=== PATIENT | male | born 1950 | race Caucasian/White ===

== ENCOUNTER 2017-08-26 13:47 | Observation (INO) | payer OTHER ==
[2017-08-26] MEDS ORDERED: NA CHLORIDE 0.9% 1,000 ML ONE (15:00)
--- NOTE | 2017-08-26 15:15 | EKG ---
Test Date: 2017-08-26 Test Time: 14:14:51 Sweat Band Sewer: MAGGIE MEASUREMENT RESULTS: Intervals: Rate: 74 MI: 166 QRSD: 102 QT: 416 QTc: 461 Wesson: P: 28 MI: 166 QRS: -13 T: 34 INTERPRETIVE STATEMENTS: Normal sinus rhythm Normal ECG Compared to ECG 07/26/2015 08:17:02 No significant changes Electronically Signed On 08-26-17 15:14:41 CDT by Jarred Turpin
[2017-08-26 15:17] LABS: Absolute Lymphocytes (CBC) 1.3 K/uL (0.7-4.9); Absolute Monocytes 0.5 K/uL (0.1-1.3); Absolute Neutrophil 3.7 K/uL (1.8-8.0); Basophils % 0.3 % (0-1.3); Eosinophils % 1.7 % (0-4.4); Hematocrit 31.8 % (39.6-49.0); Lymphocytes % 23.2 % (15.3-44.8); MCH 22.2 pg (27.0-35.0); MCV 70.7 fL (80-100); MPV 7.2 fL (7.6-11.3); Monocytes % 8.9 % (3.3-12.3); RBC Red Blood Cell Count 4.49 M/uL (4.33-5.43)
[2017-08-26 15:30] LABS: Protime INR 1.08
[2017-08-26 15:39] LABS: Albumin 3.5 g/dL (3.4-5.0); Bilirubin Direct 0.2 mg/dL (0-0.2); Bilirubin Total 0.6 mg/dL (0.2-1.0); CKMB Creatine Kinase MB 2.2 ng/mL (0.3-3.6); Magnesium 2.2 mg/dL (1.8-2.4); Potassium 3.5 mmol/L (3.5-5.1); Protein, Total 7.6 g/dL (6.4-8.2)
--- NOTE | 2017-08-26 16:04 | RAD REPORT ---
EXAM DESCRIPTION: RAD - Chest Single View - 08/26/2017 3:59 pm CLINICAL HISTORY: Cough, abdominal distention COMPARISON: July 2015 TECHNIQUE: AP portable chest image was obtained 1547 hours . FINDINGS: Lung markings are similar to comparison. No peripheral mass, infiltrate or failure finding . Trachea is midline. Heart and vasculature are normal. No measurable pleural effusion and no pneumot horax. No gross bony abnormality seen. No acute aortic findings suspected. IMPRESSION: No acute cardiopulmonary finding. No significant change from comparison.
--- NOTE | 2017-08-26 17:22 | RAD REPORT ---
EXAM DESCRIPTION: CT - Abdomen Pelvis W Contrast - 08/26/2017 4:52 pm CLINICAL HISTORY: Abdominal pain. COMPARISON: None. TECHNIQUE: Computed axial tomography of the abdomen and pelvis was obtained. 100 cc Isovue-300 is ad ministered intravenously. Oral contrast was given. All CT scans are performed using dose optimization technique as appropriate and may include automated exposure control or mA/KV adjustment according to patient size. FINDINGS: The opacification of the vessels and organs is limited due to technical problems. The liver, spleen, pancreas, and adrenals appear grossly normal. Small renal cysts are present. The appendix is normal caliber. A 4 centimeter soft tissue structure appears to be present within the hepatic flexure of the colon. A couple of adjacent lymph nodes measure up to 5 millimeters. Bilateral inguinal hernias contain fat. A duodenal diverticulum is seen IMPRESSION: 4 centimeter soft tissue structure within the hepatic flexure of the colon suspicious fo r neoplasm. . Probably less likely this represents incomplete distention. Colonoscopy is recommended.
--- NOTE | 2017-08-26 17:32 | EDPHYS ---
Physician Documentation [facility] Name: Ramu Weir Sr Age: 66 yrs Sex: Male : 1950 Arrival Date: 08/26/2017 Time: 13:51 Bed 7 Private MD: None, None ED Physician Delano Demarco HPI: 08/26 14:38 This 66 yrs old Male presents to ER via Wheelchair with complaints of Feet jeniffer Swelling, Leg Swelling, Cough, Dizziness, Chest Wall Pain. 14:38 The patient or guardian reports cough, difficulty breathing. Onset: The jeniffer symptoms/episode began/occurred 5 day(s) ago. Severity of symptoms: At their worst the symptoms were mild, in the emergency department the symptoms. Modifying factors: The symptoms are alleviated by nothing, the symptoms are aggravated by nothing. Associated signs and symptoms: The patient has no apparent associated signs or symptoms. Historical: - Allergies: 14:16 NKA; iw - Home Meds: 14:16 unknown BP medicine [Active]; iw - PMHx: 14:16 Hypertension; iw - PSHx: 14:16 None; iw - Immunization history:: Adult Immunizations not up to date. - Social history:: Smoking status: Patient/guardian denies using tobacco, the patient reports quitting approximately 3 years ago. - Ebola Screening: : Patient negative for fever greater than or equal to 101.5 degrees Fahrenheit, and additional compatible Ebola Virus Disease symptoms Patient denies exposure to infectious person Patient denies travel to an Ebola-affected area in the 21 days before illness onset No symptoms or risks identified at this time. ROS: 14:39 Constitutional: Negative for fever, chills, and weight loss, Eyes: Negative for injury, jeniffer pain, redness, and discharge, ENT: Negative for injury, pain, and discharge, Neck: Negative for injury, pain, and swelling, Back: Negative for injury and pain, : Negative for injury, bleeding, discharge, and swelling, Skin: Negative for injury, rash, and discoloration, Neuro: Negative for headache, weakness, numbness, tingling, and seizure, Psych: Negative for depression, anxiety, suicide ideation, homicidal ideation, and hallucinations, Allergy/Immunology: Negative for hives, rash, and allergies, Endocrine: Negative for neck swelling, polydipsia, polyuria, polyphagia, and marked weight changes, Hematologic/Lymphatic: Negative for swollen nodes, abnormal bleeding, and unusual bruising. 14:39 Cardiovascular: Positive for chest pain. 14:39 Respiratory: Positive for cough, shortness of breath. 14:39 Abdomen/GI: Positive for abdominal pain, abdominal distension. Exam: 14:39 Constitutional: This is a well developed, well nourished patient who is awake, alert, jeniffer and in no acute distress. Head/Face: Normocephalic, atraumatic. Eyes: Pupils equal round and reactive to light, extra-ocular motions intact. Lids and lashes normal. Conjunctiva and sclera are non-icteric and not injected. Cornea within normal limits. Periorbital areas with no swelling, redness, or edema. ENT: Nares patent. No nasal discharge, no septal abnormalities noted. Tympanic membranes are normal and external auditory canals are clear. Oropharynx with no redness, swelling, or masses, exudates, or evidence of obstruction, uvula midline. Mucous membranes moist. Neck: Trachea midline, no thyromegaly or masses palpated, and no cervical lymphadenopathy. Supple, full range of motion without nuchal rigidity, or vertebral point tenderness. No Meningismus. Chest/axilla: Normal chest wall appearance and motion. Nontender with no deformity. No lesions are appreciated. Cardiovascular: Regular rate and rhythm with a normal S1 and S2. No gallops, murmurs, or rubs. Normal PMI, no JVD. No pulse deficits. Back: No spinal tenderness. No costovertebral tenderness. Full range of motion. Skin: Warm, dry with normal turgor. Normal color with no rashes, no lesions, and no evidence of cellulitis. Neuro: Awake and alert, GCS 15, oriented to person, place, time, and situation. Cranial nerves II-XII grossly intact. Motor strength 5/5 in all extremities. Sensory grossly intact. Cerebellar exam normal. Normal gait. Psych: Awake, alert, with orientation to person, place and time. Behavior, mood, and affect are within normal limits. 14:39 Respiratory: the patient does not display signs of respiratory distress, Respirations: labored breathing, that is mild, Breath sounds: decreased breath sounds, Respiratory rate: 18 Vital Signs: 14:17 BP 130 / 85; Pulse 76; Resp 18 S; Temp 98.3; Pulse Ox 99% on R/A; Weight 99.79 kg; iw Height 5 ft. 10 in. (177.80 cm); Pain 0/10; 15:49 BP 121 / 77; Pulse 72; Resp 16; Pulse Ox 97% on R/A; aj 18:47 BP 139 / 98; Pulse 84; Resp 17; Pulse Ox 100% on R/A; aj 19:41 BP 144 / 90; Pulse 94; Resp 19; Pulse Ox 99% on R/A; aj 19:50 BP 142 / 96; Pulse 83; Resp 18; Pulse Ox 99% on R/A; mt 14:17 Body Mass Index 31.57 (99.79 kg, 177.80 cm) iw MDM: 14:09 Patient medically screened. [facility] 14:46 Data reviewed: vital signs, nurses notes, lab test result(s), EKG, radiologic studies, [facility] CT scan, plain films. 08/26 14:38 Order name: Basic Metabolic Panel; Complete Time: 16:03 [facility] 08/26 14:38 Order name: CBC with Diff; Complete Time: 15:36 [facility] 08/26 14:38 Order name: Ckmb; Complete Time: 16:03 [facility] 08/26 14:38 Order name: CPK; Complete Time: 16:03 [facility] 08/26 14:38 Order name: LFT's; Complete Time: 16:03 [facility] 08/26 14:38 Order name: Magnesium; Complete Time: 16:03 [facility] 08/26 14:38 Order name: NT PRO-BNP; Complete Time: 16:03 [facility] 08/26 14:38 Order name: PT-INR; Complete Time: 15:36 [facility] 08/26 14:38 Order name: Ptt, Activated; Complete Time: 15:36 [facility] 08/26 14:38 Order name: Troponin (emerg Dept Use Only); Complete Time: 16:03 [facility] 08/26 14:38 Order name: Lipase; Complete Time: 16:03 [facility] 08/26 16:03 Order name: AMMONIA [facility] 08/26 18:07 Order name: Urine Dipstick--Ancillary (enter results) eb 08/26 19:12 Order name: Urine Dipstick-Ancillary EDMS 08/26 14:38 Order name: XRAY Chest (1 view); Complete Time: 17:06 [facility] 08/26 14:38 Order name: EKG; Complete Time: 14:39 [facility] 08/26 14:38 Order name: Cardiac monitoring; Complete Time: 14:55 [facility] 08/26 14:38 Order name: EKG - Nurse/Tech; Complete Time: 16:44 [facility] 08/26 14:38 Order name: IV Saline Lock; Complete Time: 14:55 [facility] 08/26 14:38 Order name: Labs collected and sent; Complete Time: 14:56 [facility] 08/26 14:38 Order name: O2 Per Protocol; Complete Time: 14:56 [facility] 08/26 14:38 Order name: O2 Sat Monitoring; Complete Time: 14:56 [facility] 08/26 14:38 Order name: Urine Dipstick-Ancillary (obtain specimen); Complete Time: 18:02 [facility] 08/26 14:38 Order name: CT Abd/Pelvis - W/Contrast; Complete Time: 17:28 [facility] 08/26 17:40 Order name: CONS Physician Consult EDOR 08/26 17:40 Order name: Echo with Doppler EDOR Administered Medications: 14:58 Drug: NS 0.9% 1000 ml Route: IV; Rate: 75 ml/hr; Site: right forearm; aj 20:05 Follow up: Response: No adverse reaction; IV Status: Order to discontinue infusion; IV aj Intake: 250ml 17:53 Drug: Cipro 400 mg Volume: 200 ml; Route: IVPB; Infused Over: 60 mins; Site: right aj forearm; 20:08 Follow up: Response: No adverse reaction; IV Status: Completed infusion; IV Intake: aj 200ml 17:53 Drug: Flagyl 500 mg Volume: 100 ml; Route: IVPB; Rate: 200 ml/hr; Infused Over: 30 aj mins; Site: right forearm; 20:04 Follow up: Response: No adverse reaction; IV Status: Completed infusion; IV Intake: aj 100ml Disposition: 08/26/17 17:32 Hospitalization ordered by Chaitanya Harmon for Inpatient Admission. Preliminary diagnosis are Abdominal tenderness, Other specified noninfective gastroenteritis and colitis - hepatic flexure, Edema, unspecified. - Bed requested for Telemetry/MedSurg (Inpatient). - Status is Inpatient Admission. aj - Condition is Fair. - Problem is new. - Symptoms have improved. UTI on Admission? No Signatures: Dispatcher [employer] EDOR Chadwick, Marielle, RN RN kl Rodriguez, Cheri, RN Delano Causey MD MD cha Williams, Irene, RN RN iw Botello, Elizabeth eb Corrections: (The following items were deleted from the chart) 17:50 17:32 Hospitalization Ordered by Chaitanya Harmon MD for Inpatient Admission. Preliminary eb diagnosis is Abdominal tenderness; Other specified noninfective gastroenteritis and colitis - hepatic flexure; Edema, unspecified. Bed requested for Telemetry/MedSurg (Inpatient). Status is Inpatient Admission. Condition is Fair. Problem is new. Symptoms have improved. UTI on Admission? No. jeniffer 19:34 17:50 08/26/2017 17:32 Hospitalization Ordered by Chaitanya Harmon MD for Inpatient kl Admission. Preliminary diagnosis is Abdominal tenderness; Other specified noninfective gastroenteritis and colitis - hepatic flexure; Edema, unspecified. Bed requested for Telemetry/MedSurg (Inpatient). Status is Inpatient Admission. Condition is Fair. Problem is new. Symptoms have improved. UTI on Admission? No. eb 20:09 19:34 08/26/2017 17:32 Hospitalization Ordered by Chaitanya Harmon MD for Inpatient aj Admission. Preliminary diagnosis is Abdominal tenderness; Other specified noninfective gastroenteritis and colitis - hepatic flexure; Edema, unspecified. Bed requested for Telemetry/MedSurg (Inpatient). Status is Inpatient Admission. Condition is Fair. Problem is new. Symptoms have improved. UTI on Admission? No. kl
--- NOTE | 2017-08-26 17:32 | ER ---
Nurse's Notes [facility] Name: Ramu Weir Sr Age: 66 yrs Sex: Male : 1950 Arrival Date: 08/26/2017 Time: 13:51 Bed 7 Private MD: None, None Diagnosis: Abdominal tenderness;Other specified noninfective gastroenteritis and colitis-hepatic flexure;Edema, unspecified Presentation: 08/26 14:14 Presenting complaint: Patient states: has had swelling and tingling in both feet X 1 iw week, also has had dry cough and gets dizzy when he cough, SOB on exertion, denies chest pain. Transition of care: patient was not received from another setting of care. Onset of symptoms was August 19, 2017. Risk Assessment: Do you want to hurt yourself or someone else? Patient reports no desire to harm self or others. Initial Sepsis Screen: Does the patient meet any 2 criteria? No. Patient's initial sepsis screen is negative. Does the patient have a suspected source of infection? No. Patient's initial sepsis screen is negative. Care prior to arrival: None. 14:14 Method Of Arrival: Wheelchair iw 14:14 Acuity: LANIE 3 iw Historical: - Allergies: 14:16 NKA; iw - Home Meds: 14:16 unknown BP medicine [Active]; iw - PMHx: 14:16 Hypertension; iw - PSHx: 14:16 None; iw - Immunization history:: Adult Immunizations not up to date. - Social history:: Smoking status: Patient/guardian denies using tobacco, the patient reports quitting approximately 3 years ago. - Ebola Screening: : Patient negative for fever greater than or equal to 101.5 degrees Fahrenheit, and additional compatible Ebola Virus Disease symptoms Patient denies exposure to infectious person Patient denies travel to an Ebola-affected area in the 21 days before illness onset No symptoms or risks identified at this time. Screenin:02 Abuse screen: Denies threats or abuse. Denies injuries from another. Nutritional aj screening: No deficits noted. Tuberculosis screening: No symptoms or risk factors identified. Fall Risk None identified. Assessment: 15:00 General: Appears in no apparent distress. comfortable, Behavior is calm, cooperative, aj appropriate for age. Pain: Denies pain. Neuro: Level of Consciousness is awake, alert, obeys commands, Oriented to person, place, time, situation. Cardiovascular: Capillary refill < 3 seconds in bilateral fingers Patient's skin is warm and dry. Cardiovascular: Edema is 1+ to left ankle and right ankle is 2+ to left foot and right foot. Respiratory: Airway is patent Trachea midline Respiratory effort is even, unlabored, Respiratory pattern is regular, symmetrical. Respiratory: Reports cough that is. Derm: Skin is intact, is healthy with good turgor, Skin is pink, warm \T\ dry. normal. 15:00 GI: Abdomen is round distended, obese. aj 18:46 Reassessment: Patient appears in no apparent distress at this time. No changes from aj previously documented assessment. Patient and/or family updated on plan of care and expected duration. Pain level reassessed. Patient is alert, oriented x 3, equal unlabored respirations, skin warm/dry/pink. Patient denies pain at this time. 18:47 Reassessment: Patient appears in no apparent distress at this time. No changes from aj previously documented assessment. Patient and/or family updated on plan of care and expected duration. Pain level reassessed. Patient is alert, oriented x 3, equal unlabored respirations, skin warm/dry/pink. Patient denies pain at this time. Vital Signs: 14:17 BP 130 / 85; Pulse 76; Resp 18 S; Temp 98.3; Pulse Ox 99% on R/A; Weight 99.79 kg; iw Height 5 ft. 10 in. (177.80 cm); Pain 0/10; 15:49 BP 121 / 77; Pulse 72; Resp 16; Pulse Ox 97% on R/A; aj 18:47 BP 139 / 98; Pulse 84; Resp 17; Pulse Ox 100% on R/A; aj 19:41 BP 144 / 90; Pulse 94; Resp 19; Pulse Ox 99% on R/A; aj 19:50 BP 142 / 96; Pulse 83; Resp 18; Pulse Ox 99% on R/A; mt 14:17 Body Mass Index 31.57 (99.79 kg, 177.80 cm) ED Course: 13:51 Patient arrived in ED. mr 13:52 None, None is Private Physician. mr 14:09 Delano Demarco MD is Attending Physician. [facility] 14:09 Cheri Rodriguez, ANUSHA is Primary Nurse. aj 14:16 Triage completed. iw 14:17 Arm band placed on. iw 14:20 EKG done, by health tech. reviewed by Delano Demarco MD. sm3 14:56 Radiology exam delayed due to LAB DRAW. jr1 15:02 Patient has correct armband on for positive identification. Placed in gown. Bed in low aj position. Adult w/ patient. rivet machine operator on. Pulse ox on. NIBP on. 15:02 Inserted saline lock: 22 gauge in right forearm, using aseptic technique. Patient aj maintains SpO2 saturation greater than 95% on room air. 15:55 X-ray completed. Portable x-ray completed in exam room. Patient tolerated procedure mh1 well. 15:57 XRAY Chest (1 view) In Process Unspecified. EDMS 16:[address] via wheelchair. mw3 16:52 CT Abd/Pelvis - W/Contrast In Process Unspecified. EDMS 16:53 CT completed. Patient tolerated procedure well. Patient moved back from CT. mw3 17:31 Chaitanya Harmon MD is Hospitalizing Provider. [facility] 18:02 Urine collected: clean catch specimen, clear, juan colored. jb1 20:03 Report given to Ranjeet. aj 20:03 No provider procedures requiring assistance completed. Patient admitted, IV remains in aj place. Administered Medications: 14:58 Drug: NS 0.9% 1000 ml Route: IV; Rate: 75 ml/hr; Site: right forearm; aj 20:05 Follow up: Response: No adverse reaction; IV Status: Order to discontinue infusion; IV aj Intake: 250ml 17:53 Drug: Cipro 400 mg Volume: 200 ml; Route: IVPB; Infused Over: 60 mins; Site: right aj forearm; 20:08 Follow up: Response: No adverse reaction; IV Status: Completed infusion; IV Intake: aj 200ml 17:53 Drug: Flagyl 500 mg Volume: 100 ml; Route: IVPB; Rate: 200 ml/hr; Infused Over: 30 aj mins; Site: right forearm; 20:04 Follow up: Response: No adverse reaction; IV Status: Completed infusion; IV Intake: aj 100ml Intake: 20:04 IV: 100ml; Total: 100ml. aj 20:05 IV: 250ml; Total: 350ml. aj 20:08 IV: 200ml; Total: 550ml. aj Outcome: 17:32 Decision to Hospitalize by Provider. jeniffer 20:03 Admitted to Med/surg accompanied by tech, via wheelchair, room 232, with chart. haseeb 20:03 Condition: good 20:03 Instructed on the need for admit. 20:09 Patient left the ED. haseeb Signatures: Dispatcher [employer] EDRehan Aldrich jb1 Cheri Rodriguez, ANUSHA RN Delano Mac MD MD cha Rivera, Angela mr Anders, Corry 1 Rodrigo, Cindy 1 Heidi Mccracken, Jud Robin RN, mt, Shakira 3 Cora Song mw3 Corrections: (The following items were deleted from the chart) 16:53 16:52 Patient taken to an exam room, Patient moved to [place] mw3 mw3
[2017-08-26] MEDS ORDERED: METRONIDAZOLE 500mg IVPB 500 MG/100 ML BAG IV ONE (17:51)
[2017-08-26] MEDS ORDERED: CIPROFLOXACIN 400mg IV 400 MG/200 ML BAG IV ONE (17:51)
[2017-08-26] MEDS ORDERED: ONDANSETRON 4 MG/2 ML VIAL IV PRN (17:55)
[2017-08-26] MEDS ORDERED: LABETALOL 20 MG/4ML SYRINGE IV PRN (18:35)
[2017-08-26 19:11] LABS: Urine Blood NEGATIVE (NEG); Urine Glucose NEGATIVE (NEG); Urine Protein NEGATIVE (NEG); Urine Specific Gravity 1.015 (1.005-1.030)
[2017-08-26] MEDS ORDERED: LIDOCAINE 1% W/EPI 1:100,000 MDV 50 ML VIAL ONE (19:47)
[2017-08-26 21:01] VITALS: BMI 35.5
[2017-08-26] MEDS: THIAMINE HCL 100 MG TABLET PO SCH (21:12)
[2017-08-26] MEDS: FUROSEMIDE 40 MG/4 ML VIAL IV SCH (21:12)
[2017-08-26] MEDS: FOLIC ACID 1 MG TABLET PO SCH (21:12)
[2017-08-26] MEDS: LORazepam 2 MG/ML VIAL IV PRN (22:28)
--- NOTE | 2017-08-27 04:09 | HP ---
Date of Admission: 08/26/2017 Primary Care Physician: None. Chief Complaint: Abdominal swelling, edema. History Of Present Illness: The patient is a 66-year-old male with past medical history of hypertension, who has not seen a physician in a very long time, comes in with several months' swelling in his abdomen, his lower extremities, and some shortness of breath. The patient's symptoms are constant , moderate, progressively worsening. Past Medical History: Hypertension. Past Surgical History: Had trauma to his right leg and had a metal implant in his hip and leg. Allergies: NO KNOWN DRUG ALLERGIES. Medications: None. Social History: The patient denies smoking, drinks 6 packs every 3 to 4 days. No illicit drug use. Family History: The patient denies any history of premature coronary artery disease. Review of Systems: An 11-point system reviewed, negative except as per HPI. Physical Examination: Vital Signs: Blood pressure 130/85, pulse 76, respirations 18, temperature 98.3 , O2 99% on room air. General: Awake, alert, oriented, in some mild distress. Elderly male. CV: S1, S2. Regular rate and rhythm. Peripheral pulses present. HEENT: Normocephalic, atraumatic. PERRLA. EOMI. Moist mucous membranes. Poor dentition. Conjunctiva is anicteric. Neck: Supple. Trachea midline. JVD distention. Respiratory: Diminished breath sounds at the bases. No wheezing. No use of accessory muscles. Gastrointestinal: Abdomen is distended. Positive bowel sounds. No tenderness to palpation, moderate ascites. Extremities: No clubbing or cyanosis. 3+ edema to bilateral lower extremities. No calf tenderness. Neuro: Cranial nerves 2 through 12 intact grossly. No focal neurological deficit. Speech is normal. Strength is 5/5 in bilateral upper and lower extremities. Skin: The patient has chronic venous stasis changes in bilateral lower extremities. Psych: Mood is okay. Affect is full. Insight and judgment are poor. Laboratory Data: Sodium 136, potassium 3.5, chloride 103, CO2 26, BUN 7, creatinine 0.9, glucose 109, calcium 8.7, magnesium 2.2. Troponin less than 0.02. INR 1.08. WBC 5.6, H and H 10 and 31.8, platelets 253. Chest x-ray shows no acute cardiopulmonary process. Abdomen CT shows a 4 cm soft tissue structure within the hepatic flexure of the colon, suspicious for neoplasm, probably less likely this represents incomplete distention. Colonoscopy is recommended. Assessment: A 66-year-old male with; 1. Colon mass around the areaof hepatic flexure. 2. Anasarca with ascites. 3. Shortness of breath. 4. Coagulopathy. 5. Hyperglycemia. 6. Anemia, microcytic, hypochromic. 7. Alcohol dependence. Plan: Admit the patient to [facility] as inpatient. We will start on diuresis with Lasix and Aldactone. The patient probably has alcoholic liver disease. We will continue with Ativan p.r.n. for alcohol withdrawal. P.r.n. medications for blood pressure. Consult GI, Dr. Adams. CODE STATUS: FULL. No TAHIRA VELAZCO/SINCERE Voice ID: [id number] MTDD
[2017-08-27 05:09] LABS: Protime INR 1.18
[2017-08-27 05:11] LABS: Absolute Lymphocytes (CBC) 1.2 K/uL (0.7-4.9); Absolute Monocytes 0.5 K/uL (0.1-1.3); Absolute Neutrophil 3.3 K/uL (1.8-8.0); Basophils % 0.2 % (0-1.3); Eosinophils % 2.6 % (0-4.4); Hematocrit 28.4 % (39.6-49.0); MCH 22.9 pg (27.0-35.0); MCV 69.6 fL (80-100); MPV 7.1 fL (7.6-11.3); Monocytes % 9.8 % (3.3-12.3); RBC Red Blood Cell Count 4.08 M/uL (4.33-5.43)
[2017-08-27 05:23] LABS: Albumin 3.2 g/dL (3.4-5.0); Bilirubin Total 0.6 mg/dL (0.2-1.0); Potassium 3.2 mmol/L (3.5-5.1); Protein, Total 6.9 g/dL (6.4-8.2)
[2017-08-27 06:01] LABS: Blood Morphology Comment NOTED (NOT SEEN); Hypochromasia 1+; Platelet Estimate ADEQ; Urine White Blood Cell Casts OK
[2017-08-27] MEDS ORDERED: PNEUMOCOCCAL VACCINE 0.5 ML IMVAC ONE (08:00)
[2017-08-27] MEDS: FUROSEMIDE 40 MG/4 ML VIAL IV SCH ×2 (10:03→21:08)
[2017-08-27] MEDS: THIAMINE HCL 100 MG TABLET PO SCH (10:04)
[2017-08-27] MEDS: SPIRONOLACTONE 25 MG TABLET PO SCH (10:04)
[2017-08-27] MEDS: FOLIC ACID 1 MG TABLET PO SCH (10:04)
--- NOTE | 2017-08-27 13:56 | ECHO ---
HEIGHT: 5 ft 10 in WEIGHT: 247 lb 11.2 oz DATE OF STUDY: 08/27/[address]: Delano Demarco MD 2-DIMENSIONAL: YES M.MODE: YES DOPPLER: YES COLOR FLOW: YES TDS: PORTABLE: DEFINITY: BUBBLE STUDY: DIAGNOSIS: CONGESTIVE HEART FAILURE/ DYSPNEA CARDIAC HISTORY: CATHERIZATION: NO SURGERY: NO PROSTHETIC VALVE: NO PACEMAKER: NO MEASUREMENTS (cm) DIASTOLIC (NORMALS) SYSTOLIC (NORMALS) IVSd 1.1 (0.6-1.2) LA Diam 4.1 (1.9-4.0) LVEF 78% LVIDd 4.8 (3.5-5.7) LVIDs 2.6 (2.0-3.5) %FS 47% LVPWd 1.3 (0.6-1.2) Ao Diam 3.4 (2.0-3.7) 2 DIMENSIONAL ASSESSMENT: RIGHT ATRIUM: NORMAL LEFT ATRIUM: DILATED RIGHT VENTRICLE: NORMAL LEFT VENTRICLE: NORMAL TRICUSPID VALVE: NORMAL MITRAL VALVE: NORMAL PULMONIC VALVE: NORMAL AORTIC VALVE: NORMAL PERICARDIAL EFFUSION: NONE AORTIC ROOT: NORMAL LEFT VENTRICULAR WALL MOTION: NORMAL DOPPLER/COLOR FLOW: MILD TRICUSPID REGURGITATION. COMMENTS: MILD TRICUSPID REGURGITATION. NORMAL RIGHT VENTRICULAR SYSTOLIC PRESSURE. LEFT ATRIAL ENLARGEMENT. NORMAL LEFT VENTRICULAR SIZE AND FUNCTION. NO WALL MOTION ABNORMALITY. NO EFFUSION. TECHNOLOGIST: MAKAYLA MANJARREZ
--- NOTE | 2017-08-27 15:21 | PN ---
Date of Progress Note: 08/27/2017 Subjective: The patient is seen and examined, chart reviewed and case discussed with RN. The patient states that he had a good night overall, able to sleep. No acute events. Still having some discomfort due to abdominal distention. Review of Systems: Negative except as above. Medications: Reviewed. Physical Examination: Vital Signs: Temperature 97.9, heart rate 84, blood pressure 114/69, respirations 18, O2 97% on room air. General: Awake, alert, oriented x3, in some mild distress. Elderly male, somewhat ill-appearing, obese. CV: S1, S2. No murmurs. Peripheral pulses present. Respiratory: Diminished breath sounds at the bases. Some crackles heard. No wheezing. Gastrointestinal: Abdomen is distended, nontender. Positive bowel sounds. Ascites is present. Extremities: No clubbing, cyanosis. 3+ edema bilateral lower extremities. Neurologic: Nonfocal. Laboratory Data: Sodium 137, potassium 3.2, chloride 102, CO2 29, BUN 7, creatinine 1, glucose 101, calcium 8.3, albumin 3.2. WBC 5.2, H and H 9.3, 28.4 , platelets 273. Assessment And Plan: A 66-year-old male with: 1. Anasarca with ascites. Continue with spironolactone and Lasix. The patient does have liver dysfunction. We will obtain abdominal ultrasound. 2. Colon mass around the hepatic flexure. The patient will possibly need a colonoscopy. GI has been consulted. 3. Shortness of breath secondary to above, improving. The patient doing well on room air. 4. Coagulopathy secondary to liver disease. 5. Hyperglycemia, resolved. 6. Microcytic hypochromic anemia. Monitor H and H, transfuse as needed. 7. Alcohol dependence. We will continue Ativan p.r.n. for withdrawal. Thiamine, folate, multivitamin. The patient has been counseled. 8. Gastrointestinal and deep venous thrombosis prophylaxis with PPI and SCDs. No chemical anticoagulation due to possible procedure. 9. Obesity: BMI>30 ADDENDUM: Spoke w Dr. Rajan. Case discussed. Recommends out patient colonoscopy, cardiac clearance. Continue diuresis SA/MODL Voice ID: [id number] Report ID: [id number] [facility]
[2017-08-27] MEDS: LORazepam 2 MG/ML VIAL IV PRN (22:05)
[2017-08-28 05:22] LABS: Absolute Lymphocytes (CBC) 1.5 K/uL (0.7-4.9); Absolute Monocytes 0.6 K/uL (0.1-1.3); Absolute Neutrophil 3.7 K/uL (1.8-8.0); Basophils % 0.5 % (0-1.3); Eosinophils % 2.9 % (0-4.4); Hematocrit 29.7 % (39.6-49.0); Lymphocytes % 24.8 % (15.3-44.8); MCH 22.8 pg (27.0-35.0); MCV 71.4 fL (80-100); MPV 7.4 fL (7.6-11.3); Monocytes % 10.4 % (3.3-12.3); RBC Red Blood Cell Count 4.15 M/uL (4.33-5.43)
[2017-08-28 05:46] LABS: Albumin 3.3 g/dL (3.4-5.0); Bilirubin Total 0.5 mg/dL (0.2-1.0); Potassium 3.1 mmol/L (3.5-5.1); Protein, Total 7.1 g/dL (6.4-8.2)
--- NOTE | 2017-08-28 08:02 | RAD REPORT ---
EXAM DESCRIPTION: US - Abdomen Exam Complete - 08/28/2017 7:19 am CLINICAL HISTORY: Abnormal liver function, anasarca, colon mass COMPARISON: CT August 26 FINDINGS: Gallbladder size is normal. No gallstones, wall thickening or pericholecystic fluid. Commo n bile duct is normal with no common duct stone identified. Liver is 15 cm maximum dimension. No foca l liver lesion was identifiable. No abnormal nodularity of the capsule. Spleen is upper normal at 15 cm. No focal splenic abnormality. The pancreas is grossly normal but partially obscured. No suspicion for pancreatic process on the prior study. No hydronephrosis or suspicious mass in either kidney. Patient has bilateral thin-walled anechoic sim ple cysts. Aorta is normal is size. No ascites or bulky lymphadenopathy. No IVC abnormality. IMPRESSION: No hepatomegaly or focal liver parenchymal lesion. Spleen upper normal at 15 cm with no focal abnormality. Pancreas is partially obscured. No pancreatic abnormality seen on August 26 CT study.
[2017-08-28] MEDS: SPIRONOLACTONE 25 MG TABLET PO SCH (08:43)
[2017-08-28] MEDS: FOLIC ACID 1 MG TABLET PO SCH (08:43)
[2017-08-28] MEDS: FUROSEMIDE 40 MG/4 ML VIAL IV SCH (08:44)
[2017-08-28] MEDS: THIAMINE HCL 100 MG TABLET PO SCH (08:44)
[2017-08-28] MEDS ORDERED: LOSARTAN/HCTZ 50-12.5 PO SCH (09:00)
[2017-08-28 09:30] VITALS: O2SAT 94
[2017-08-28] MEDS ORDERED: POTASSIUM CL SA 10 MEQ TAB PO ONE (09:50)
--- NOTE | 2017-08-28 11:55 | CON ---
Date of Consultation: 08/27/2017 [address] admitted to Dr. Harmon's service on 08/26/2017. The patient was seen on 08/27/2017. Reason For Consultation: Congestive heart failure new onset and cardiac clearance for colonoscopy an d possible colon surgery. History Of Present Illness: Mr. Weir is 66-year-old white male, has really no significant past ca rdia history. He is supposed to take some medication for blood pressure. Came in with abdominal pa in, pedal edema, some shortness of breath. Chest x-ray shows some mild failure. Echocardiogram by t he time I saw him was normal with a normal ejection fraction. He has diuresed and improved and is as ymptomatic from a cardiac standpoint. Denies any chest pain, nausea, vomiting, diaphoresis, PND, ort hopnea, palpitation, or syncope. Apparently, he was found on CT of the abdomen to have a colonic fle xure mass with some possible adenopathy, a colonoscopy is planned. The patient is asymptomatic now. Past Medical History: Unremarkable. Review of Systems: Negative. Social History: Negative. Family History: Negative. Medications: At home are none. Physical Examination: Vital signs: Stable. He is afebrile. HEENT: Negative. Neck: Supple without any bruit, lymphadenopathy, JVD, or thyromegaly. Chest: Clear. Cardiac: Exam revealed a regular rhythm and rate with gallops. No murmurs or rubs. Abdomen: Distended, obese. Good bowel sounds. No hepatosplenomegaly. Extremities: Revealed trace edema. Diagnostic Data: Fairly unremarkable except what was mentioned earlier. EKG was nonspecific. Impression/plan: This is a patient with what sounds like a new . Echocardiogram was daphney l. He may have some diastolic dysfunction that is not noticeable now after his treatment. He needs to be on low dose Lasix and maybe a small dose of calcium channel kelsi for hypertension, he is to watch his salt intake. Eventually probably have a Lexiscan, but for now, I think he is cleared to [place] ve a colonoscopy done and his colon surgery if the need be. He does not have diabetes or dyslipidemi a. does not smoke and does not have a family history of heart disease. The case was disc ussed with Dr. Harmon. ROLANDO/SINCERE Voice ID: [id number] Report ID: [id number]
[2017-08-28 11:56] VITALS: BP 125/80; TEMP 97.3
--- NOTE | 2017-08-29 09:36 | DS ---
Date of Discharge: 08/28/2017 Materials Branch Chief: Dr. Rajan with GI. Cardiology: Dr. Sheehan Admitting Diagnoses: 1. Shortness of breath. 2. Anasarca with mild ascites. 3. Colon mass. 4. Coagulopathy. 5. Hyperglycemia. 6. Microcytic hypochromic anemia. 7. Alcohol dependence. Discharge Diagnoses: 1. Shortness of breath, resolved. 2. Anasarca, improved with diuresis. 3. Colon mass around the hepatic flexure. The patient will need outpatient colonoscopy, likely cancerous. 4. Shortness of breath secondary to above, resolved. 5. Coagulopathy, corrected. 6. Hyperglycemia, resolved. 7. Microcytic hypochromic anemia. H and H stable. 8. Alcohol dependence counseled. Continue with vitamin, folate, thiamine. 9. Obesity, BMI greater than 30. 10. Hypokalemia, replaced. Hospital Course: The patient is a 66-year-old male with several-month history of edema and swelling of his abdomen and lower extremities, shortness of breath , comes in for further evaluation. The patient was started on diuresis. CT scan was done, which showed mass in the colon around the hepatic flexure. GI was consulted. Dr. Rajan recommended outpatient colonoscopy. The patient had echocardiogram done, which showed normal ejection fraction. The patient was cleared for procedure by Dr. Sheehan. Abdominal ultrasound was done to evaluate his liver due to longstanding history of chronic alcoholism. Abdominal ultrasound did not show any hepatomegaly or focal liver parenchymal lesion. Spleen was upper and normal at 15 cm. The patient's edema improved. His shortness of breath resolved. He was saturating 94% on room air. The patient was then cleared for discharge from art consultant's standpoint to follow up with [facility]ORD[facility] Nails for outpatient colonoscopy to have colon mass diagnosed. The patient instructed that he will likely need further workup including possible oncology evaluation if mass was not to be malignant, which is highly likely. The patient also encouraged to follow up with primary care physician to establish care within 1 week. Return to ER for worsening condition. Diet: Low-sodium fluid-restricted diet. Activity: As tolerated. Medications: As per medication reconciliation list. Complete alcohol cessation recommended. Physical Examination: General: Awake, alert, oriented, no acute distress. CV: S1, S2. No murmurs. Regular rate and rhythm. Pulses present. Respiratory: Moving air well bilaterally. No wheezing. Gastrointestinal: Abdomen is soft, nontender, nondistended. Positive bowel sounds. Extremities: No clubbing, cyanosis. Trace pedal edema. Neurologic: Nonfocal. SA/MODL Voice ID: [id number] Report ID: [id number] [facility]
== END 2017-08-28 14:32 | disposition home or self-care (01) ==
LOC: ER 13:47 → ERHOLD 17:35 → INTOOBSV 17:35 → 2ND 19:58
PROVIDERS: ADMIT Family Medicine; ATTEND Family Medicine
DX: K63.89 Other specified diseases of intestine (principal); R60.1 Generalized edema; D68.9 Coagulation defect, unspecified; R73.9 Hyperglycemia, unspecified; D50.9 Iron deficiency anemia, unspecified; F10.20 Alcohol dependence, uncomplicated; E66.9 Obesity, unspecified; Z68.30 Body mass index [BMI] 30.0-30.9, adult; E87.6 Hypokalemia; I07.1 Rheumatic tricuspid insufficiency; R18.8 Other ascites; I10 Essential (primary) hypertension; Z28.21 Immunization not carried out because of patient refusal
CPT/HCPCS: 36415 ×2; 71045; 74177; 76700; 80048; 80053 ×2; 80076; 81003; 82140; 82550; 82553; 83690; 83735; 83880; 84132; 84484; 85025 ×3; 85610 ×2; 85730; 93005; 93306; 94760 ×4; 96361; 96365; 96366; 96368; 99285; G0378 ×2; J0744; J7030; Q9967

== ENCOUNTER 2018-03-15 13:37 | Inpatient (IN) | payer OTHER ==
--- NOTE | 2018-03-15 15:18 | RAD REPORT ---
EXAM DESCRIPTION: RAD - Chest Single View - 03/15/2018 2:52 pm CLINICAL HISTORY: Fall, chest injury, chest pain COMPARISON: February 26 TECHNIQUE: AP portable chest image was obtained 1449 hour . FINDINGS: Lung volumes are low. No peripheral mass, consolidation or edema. Heart and vasculature ar e normal. No pulmonary contusion, pneumothorax or pleural fluid collection. No acute bony abnormality seen. No acute aortic findings suspected. IMPRESSION: Limited shallow inspiration exam with no acute cardiopulmonary finding.
--- NOTE | 2018-03-15 15:18 | RAD REPORT ---
EXAM DESCRIPTION: CT - CTHCSPWOC - 03/15/2018 2:47 pm CLINICAL HISTORY: Fall, head and neck injury COMPARISON: None. TECHNIQUE: Axial 5 mm thick images of the head were obtained. Axial 2 mm thick images of the cervic al spine were obtained with sagittal and coronal reconstruction images generated and reviewed. All CT scans are performed using dose optimization technique as appropriate and may include automated exposure control or mA/KV adjustment according to patient size. FINDINGS: No intracranial hemorrhage, mass, edema or acute intracranial finding. No suspicion for ac [place] infarction. No cortical edema or sulcal effacement. Moderate severity atrophy and chronic ischemi c changes are present. Ventricles are in proportion to volume loss. Mastoid air cells are clear. Acut e and chronic sinusitis left maxillary sinus. No globe or orbit abnormality seen. Cervical body height and alignment are normal. All disc spaces are narrowed except for C2-3. Prominen t degenerative change present involves dens and the anterior arch C1. Mild bilateral foraminal encroa chment at C3-4 from uncovertebral joint hypertrophy. Posterior disc bulge and endplate spurring shepard es C4-5 cause borderline spinal stenosis and significant bilateral foraminal stenosis. Patient has la rge posterior endplate spurring at C5-6 and C6-7 with central spinal stenosis and prominent foraminal stenosis. No fracture or acute bony abnormality. Central canal detail is inherently limited. No paraspinal mass or hematoma. IMPRESSION: Atrophy and chronic ischemic change with no acute intracranial finding. Advanced cervical spine degenerative change with central spinal stenosis C5-7 with significant multil evel bony foraminal stenosis. No fracture or acute cervical spine finding.
[2018-03-15 15:54] LABS: ALT/SGPT 13 U/L (12-78); AST/SGOT 21 U/L (15-37); Albumin 3.7 g/dL (3.4-5.0); Alkaline Phosphatase 168 U/L (45-117); BUN Blood Urea Nitrogen 18 mg/dL (7-18); Bicarbonate 16 mmol/L (21-32); Bilirubin Direct 0.2 mg/dL (0-0.2); Bilirubin Total 0.5 mg/dL (0.2-1.0); Glucose Level 231 mg/dL (74-106); Magnesium 1.9 mg/dL (1.8-2.4); NT PRO-BNP 792 pg/mL (<125); Potassium 4.3 mmol/L (3.5-5.1); Sodium Level 129 mmol/L (136-145); Troponin (Emerg Dept Use Only) < 0.02 ng/mL (0.0-0.045)
[2018-03-15 16:20] LABS: Absolute Lymphocytes (CBC) 0.7 K/uL (0.7-4.9); Absolute Monocytes 0.5 K/uL (0.1-1.3); Basophils % 0.1 % (0-1.3); Hematocrit 36.4 % (39.6-49.0); Lymphocytes % 4.6 % (15.3-44.8); MPV 7.6 fL (7.6-11.3); Monocytes % 3.1 % (3.3-12.3); RBC Red Blood Cell Count 5.33 M/uL (4.33-5.43)
[2018-03-15] MEDS ORDERED: NA CHLORIDE 0.9% 500 ML ONE (16:27)
[2018-03-15 16:32] LABS: Protime INR 1.23
--- NOTE | 2018-03-15 17:16 | ER ---
Nurse's Notes [facility] Name: Ramu Weir Sr Age: 67 yrs Sex: Male : 1950 Arrival Date: 03/15/2018 Time: 13:39 Bed 7 Private MD: Diagnosis: Hypotension, unspecified;Acute kidney failure Presentation: 03/15 13:45 Presenting complaint: Child states: He was dx with colon CA last week with dr. raina alicea and he has an apt with a doctor at [facility] on but today he was in the bathroom and fell from standing on to his hands and knees, no LOC of trauma to head, neck, chest. He has been very week, anemic, dehydrated and told he has early pneumonia 2 weeks ago. He started abx yesterday. Transition of care: patient was not received from another setting of care. Onset of symptoms was March 15, 2018. Risk Assessment: Do you want to hurt yourself or someone else? Patient reports no desire to harm self or others. Initial Sepsis Screen: Does the patient meet any 2 criteria? Yes Does the patient have a suspected source of infection? No. Patient's initial sepsis screen is negative. Care prior to arrival: None. 13:45 Method Of Arrival: Wheelchair la1 13:45 Acuity: LANIE 2 la1 Historical: - Allergies: 13:48 NKA; la1 - PMHx: 13:48 Hypertension; colon CA; Cirrhosis; la1 - Immunization history:: Adult Immunizations up to date. - Social history:: Smoking status: Patient/guardian denies using tobacco. - Ebola Screening: : No symptoms or risks identified at this time. Screenin:00 Abuse screen: Denies threats or abuse. Denies injuries from another. Nutritional jl7 screening: No deficits noted. Tuberculosis screening: No symptoms or risk factors identified. Fall Risk Fall in past 12 months (25 points). No secondary diagnosis (0 pts). IV access (20 points). Ambulatory Aid- None/Bed Rest/Nurse Assist (0 pts). Gait- Weak (10 pts.). Mental Status- Oriented to own ability (0 pts). Total Henriquez Fall Scale indicates High Risk Score (45 or more points). Fall prevention measures have been instituted. Side Rails Up X 2 Placed Close to Nursing Station Frequent Obs/Assessments Occuring Family Present and informed to notify staff if the need to leave the bedside As available patient and family educated on Fall Prevention Program and Strategies. Assessment: 14:00 General: Appears in no apparent distress. uncomfortable, Behavior is calm, cooperative, jl7 appropriate for age. Pain: Denies pain. Neuro: Level of Consciousness is awake, alert, obeys commands, Oriented to person, place, time, situation. Cardiovascular: Patient's skin is warm and dry. Respiratory: Airway is patent Respiratory effort is even, unlabored, Respiratory pattern is regular, symmetrical. Derm: Skin is dry, Skin is pale, Skin temperature is warm. Musculoskeletal: No signs and/or symptoms reported regarding the musculoskeletal system. 15:00 Reassessment: Patient appears in no apparent distress at this time. No changes from jl7 previously documented assessment. Patient and/or family updated on plan of care and expected duration. Pain level reassessed. Patient is alert, oriented x 3, equal unlabored respirations, skin warm/dry/pink. 16:15 Reassessment: Pt c/o pain to hip and back due to laying in the bed, requesting jl7 something for pain, ERP notified, see MAR for orders. 17:15 Reassessment: Patient appears in no apparent distress at this time. Patient and/or jl7 family updated on plan of care and expected duration. Pain level reassessed. Patient is alert, oriented x 3, equal unlabored respirations, skin warm/dry/pink. Patient states feeling better. Patient states symptoms have improved. 18:15 Reassessment: Pt laying in bed with eyes closed, respirations even and unlabored, no jl7 signs of distress noted at this time. Vital Signs: 13:48 BP 86 / 61; Pulse 123; Resp 18; Temp 96.4; Pulse Ox 100% on R/A; Weight 99.79 kg; la1 Height 5 ft. 10 in. (177.80 cm); 14:31 BP 99 / 75; Pulse 119; Resp 24 S; Pulse Ox 98% on R/A; Pain 0/10; jl7 15:15 BP 98 / 65; Pulse 118; Resp 15 S; Pulse Ox 98% on R/A; jl7 16:33 BP 112 / 90; Pulse 120; Resp 16 S; Pulse Ox 99% on R/A; jl7 17:00 BP 125 / 84; Pulse 115; Resp 20 S; Pulse Ox 97% on R/A; jl7 17:30 BP 116 / 85; Pulse 116; Resp 19 S; Pulse Ox 97% on R/A; jl7 18:23 BP 119 / 87; Pulse 115; Resp 24; Temp 97.8(TE); Pulse Ox 97% ; jl7 13:48 Body Mass Index 31.57 (99.79 kg, 177.80 cm) la1 ED Course: 13:39 Patient arrived in ED. rg4 13:47 Triage completed. la1 13:48 Arm band placed on left wrist. la1 14:07 Delano Swain PA is PHCP. cp 14:08 Olvin Shepard MD is Attending Physician. cp 14:10 Haider Philippe RN is Primary Nurse. la1 14:32 Missed attempt(s): 22 gauge in right antecubital area. Bleeding controlled, band aid jl7 applied, catheter tip intact. 14:48 CT Head C Spine In Process Unspecified. EDMS 14:50 XRAY Chest (1 view) In Process Unspecified. EDMS 14:51 X-ray completed. Portable x-ray completed in exam room. Patient tolerated procedure la2 well. 15:00 Patient has correct armband on for positive identification. Placed in gown. Bed in low jl7 position. Call light in reach. Side rails up X2. teletypesetter monitor on. Pulse ox on. NIBP on. Warm blanket given. 15:00 Inserted saline lock: 18 gauge in right upper arm, using aseptic technique. ,using jl7 aseptic technique. inserted by Haider Philippe RN via US. 16:48 X-ray completed. Patient tolerated procedure well. Patient moved back from radiology. la2 16:49 XRAY Pelvis In Process Unspecified. EDMS 16:49 XRAY Femur RIGHT In Process Unspecified. EDMS 17:04 Primary Nurse role handed off by Haider Philippe RN jl7 17:04 Sarina Guardado RN is Primary Nurse. jl7 17:04 Sarina Guardado RN is Primary Nurse. jl7 17:14 Glo Webb MD is Hospitalizing Provider. cp 20:02 No provider procedures requiring assistance completed. IV to right upper arm d/c. New ak1 IV placement to Left upper arm by Haider Christensen RN via US. Administered Medications: 16:31 Drug: NS 0.9% 500 ml Route: IV; Rate: bolus; Site: right upper arm; jl7 18:18 Follow up: IV Status: Completed infusion jl7 16:31 Drug: fentaNYL (PF) 25 mcg Route: IVP; Site: right upper arm; jl7 17:00 Follow up: Response: No adverse reaction; Pain is decreased jl7 18:18 Not Given (ERP cancelled the order): NS 0.9% 500 ml IV at bolus once jl7 Outcome: 17:15 Decision to Hospitalize by Provider. cp 20:06 Admitted to Med/surg family with patient, via stretcher, room 224, on monitor, Report ak1 called to [facility] 20:06 Condition: stable 20:06 Instructed on the need for admit. 20:45 Patient left the ED. ak1 Signatures: Dispatcher [employer] EDMS Haider Philippe RN RN la1 Rosita Maier RN RN ak1 Delano Swain PA PA cp Garcia, Rubi 4 Sarina Guardado RN RN jl7 Danielle Vaughn la2
--- NOTE | 2018-03-15 17:16 | EDPHYS ---
Physician Documentation [facility] Name: Ramu Weir Sr Age: 67 yrs Sex: Male : 1950 Arrival Date: 03/15/2018 Time: 13:39 Bed 7 Private MD: ED Physician Olvin Shepard HPI: 03/15 14:30 This 67 yrs old Male presents to ER via Wheelchair with complaints of Fall cp Injury, Breathing Difficulty. 14:30 Details of fall: The patient fell from an upright position, while standing. Onset: The cp symptoms/episode began/occurred today. Associated injuries: The patient sustained injury to the head, contusion, right upper leg. 14:30 Patient reports he became dizzy and fell striking right side of head and right upper cp leg on ground. Historical: - Allergies: 13:48 NKA; la1 - PMHx: 13:48 Hypertension; colon CA; Cirrhosis; la1 - Immunization history:: Adult Immunizations up to date. - Social history:: Smoking status: Patient/guardian denies using tobacco. - Ebola Screening: : No symptoms or risks identified at this time. ROS: 14:35 Constitutional: Positive for poor PO intake, Negative for body aches, chills, fever. cp 14:35 Eyes: Negative for injury, pain, redness, and discharge. cp 14:35 ENT: Negative for drainage from ear(s), ear pain, sore throat, difficulty swallowing, difficulty handling secretions. 14:35 Neck: Negative for pain with movement, pain at rest, stiffness. 14:35 Cardiovascular: Negative for chest pain, edema, palpitations. 14:35 Respiratory: Positive for cough, Negative for shortness of breath, wheezing. 14:35 Abdomen/GI: Positive for abdominal distension, Negative for vomiting, diarrhea, constipation. 14:35 MS/extremity: Positive for pain, tenderness, of the right upper leg, Negative for decreased range of motion, deformity. 14:35 Neuro: Positive for weakness, Negative for altered mental status, headache, syncope, near syncope. 14:35 All other systems are negative. Exam: 14:40 Constitutional: The patient appears in no acute distress, alert, awake, cp non-diaphoretic, non-toxic, well developed, well nourished. 14:40 Head/Face: Normocephalic, atraumatic. Eyes: Pupils equal round and reactive to light, cp extra-ocular motions intact. Lids and lashes normal. Conjunctiva and sclera are non-icteric and not injected. Cornea within normal limits. Periorbital areas with no swelling, redness, or edema. ENT: Nares patent. No nasal discharge, no septal abnormalities noted. Tympanic membranes are normal and external auditory canals are clear. Oropharynx with no redness, swelling, or masses, exudates, or evidence of obstruction, uvula midline. Mucous membranes moist. Neck: Trachea midline, no thyromegaly or masses palpated, and no cervical lymphadenopathy. Supple, full range of motion without nuchal rigidity, or vertebral point tenderness. No Meningismus. Chest/axilla: Normal chest wall appearance and motion. Nontender with no deformity. No lesions are appreciated. 14:40 Cardiovascular: Rate: tachycardic, Rhythm: regular, Edema: is not appreciated, JVD: is not appreciated. 14:40 Respiratory: the patient does not display signs of respiratory distress, Respirations: normal, no use of accessory muscles, no retractions, no splinting, no tachypnea, labored breathing, is not present, Breath sounds: are clear throughout, no decreased breath sounds, no stridor, no wheezing. 14:40 Abdomen/GI: Inspection: distension, that is moderate, Bowel sounds: active, all quadrants, Palpation: abdomen is soft and non-tender, in all quadrants, involuntary guarding, is not appreciated. 14:40 Back: pain, is absent, ROM is normal. 14:40 Musculoskeletal/extremity: Extremities: grossly normal except: noted in the right upper leg: tenderness, There is no evidence of decreased ROM, deformity. 14:40 Skin: cellulitis, is not appreciated, no rash present. 14:40 Neuro: Orientation: to person, place \T\ time. Mentation: is normal, Cerebellar function: is grossly normal, Motor: moves all fours, strength is normal, Sensation: is normal. 15:00 ECG was reviewed by the Attending Physician. cp Vital Signs: 13:48 BP 86 / 61; Pulse 123; Resp 18; Temp 96.4; Pulse Ox 100% on R/A; Weight 99.79 kg; la1 Height 5 ft. 10 in. (177.80 cm); 14:31 BP 99 / 75; Pulse 119; Resp 24 S; Pulse Ox 98% on R/A; Pain 0/10; jl7 15:15 BP 98 / 65; Pulse 118; Resp 15 S; Pulse Ox 98% on R/A; jl7 16:33 BP 112 / 90; Pulse 120; Resp 16 S; Pulse Ox 99% on R/A; jl7 17:00 BP 125 / 84; Pulse 115; Resp 20 S; Pulse Ox 97% on R/A; jl7 17:30 BP 116 / 85; Pulse 116; Resp 19 S; Pulse Ox 97% on R/A; jl7 18:23 BP 119 / 87; Pulse 115; Resp 24; Temp 97.8(TE); Pulse Ox 97% ; jl7 13:48 Body Mass Index 31.57 (99.79 kg, 177.80 cm) la1 MDM: 14:08 Patient medically screened. cp 17:50 Data reviewed: vital signs, nurses notes, lab test result(s), radiologic studies, plain cp films. 03/15 14:24 Order name: Basic Metabolic Panel; Complete Time: 16:02 cp 02 16:02 Interpretation: Normal except: NA 129; CO2 16; GLUC 231; CRE 2.63; GFR 24. cp 03/15 14:24 Order name: CBC with Diff; Complete Time: 17:43 cp 03/15 17:43 Interpretation: Normal except: WBC 16.2; HGB 11.5; HCT 36.4; MCV 68.4; MCH 21.5; MCHC cp 31.4; DONTAE% 92.2; LYM% 4.6; MN% 3.1; NEUT A 15.0; PLT 660. 03/15 14:24 Order name: LFT's; Complete Time: 16:02 cp / 16:45 Interpretation: Normal except: ALK 168; TP 9.0; GLOB 5.3; A/G 0.7. cp 02/ 14:24 Order name: Magnesium; Complete Time: 16:02 cp 02/ 14:24 Order name: NT PRO-BNP; Complete Time: 16:02 cp 02/ 14:24 Order name: PT-INR; Complete Time: 16:44 cp 03/15 16:46 Interpretation: Abnormal: PT 14.6. cp 03/15 14:24 Order name: Troponin (emerg Dept Use Only); Complete Time: 16:02 cp 03/15 14:24 Order name: XRAY Chest (1 view); Complete Time: 15:33 cp 03/15 15:34 Interpretation: Report review. cp 03/15 14:24 Order name: CT Head C Spine; Complete Time: 15:33 cp 03/15 14:24 Order name: Type And Screen; Complete Time: 17:05 cp 03/15 16:12 Order name: XRAY Pelvis; Complete Time: 17:43 cp 03/15 16:12 Order name: XRAY Femur RIGHT; Complete Time: 17:43 cp 03/15 16:26 Order name: CBC Smear Scan; Complete Time: 17:43 EDMS 03/15 16:35 Order name: Urine Microscopic Only cp 03/15 14:24 Order name: EKG; Complete Time: 14:24 cp 03/15 14:24 Order name: Cardiac monitoring; Complete Time: 14:28 cp 03/15 14:24 Order name: EKG - Nurse/Tech; Complete Time: 14:59 cp 03/15 14:24 Order name: IV Saline Lock; Complete Time: 17:27 cp 03/15 14:24 Order name: Labs collected and sent; Complete Time: 17:27 cp 03/15 14:24 Order name: O2 Per Protocol; Complete Time: 14:28 cp 03/15 14:24 Order name: O2 Sat Monitoring; Complete Time: 14:28 cp EC:00 Rate is 117 beats/min. Rhythm is regular. NJ interval is normal. QRS interval is cp normal. QT interval is normal. Interpreted by me. Reviewed by me. Administered Medications: 16:31 Drug: NS 0.9% 500 ml Route: IV; Rate: bolus; Site: right upper arm; jl7 18:18 Follow up: IV Status: Completed infusion jl7 16:31 Drug: fentaNYL (PF) 25 mcg Route: IVP; Site: right upper arm; jl7 17:00 Follow up: Response: No adverse reaction; Pain is decreased jl7 18:18 Not Given (ERP cancelled the order): NS 0.9% 500 ml IV at bolus once jl7 Disposition: 03/15/18 17:15 Hospitalization ordered by Glo Webb for Inpatient Admission. Preliminary diagnosis are Hypotension, unspecified, Acute kidney failure. - Bed requested for Telemetry/MedSurg (observation). - Status is Inpatient Admission. ak1 - Condition is Stable. - Problem is new. - Symptoms have improved. UTI on Admission? No Addendum: 03/18/2018 20:32 Co-signature as Attending Physician, Olvin Shepard MD Available for consultation at p s1 all times . Signatures: Dispatcher [employer] EDMS Corry Wheeler RN RN mw Haider Philippe RN RN la1 Rosita Maier RN RN ak1 Delano Swain PA PA Sarina Almaraz RN RN jl7 Olvin Shepard MD MD ps1 Corrections: (The following items were deleted from the chart) 03/15 17:15 17:15 Hospitalization Ordered by Glo Webb MD for Observation. Preliminary diagnosis cp is Hypotension, unspecified; Acute kidney failure. Bed requested for Telemetry/MedSurg (observation). Status is Observation. Condition is Stable. Problem is new. Symptoms have improved. UTI on Admission? No. cp 17:43 16:35 Normal except: WBC 16.2; HGB 11.5; HCT 36.4; MCV 68.4; MCH 21.5; MCHC 31.4; DONTAE% cp 92.2; LYM% 4.6; MN% 3.1; NEUT A 15.0. cp 18:19 17:15 03/15/2018 17:15 Hospitalization Ordered by Glo Webb MD for Inpatient mw Admission. Preliminary diagnosis is Hypotension, unspecified; Acute kidney failure. Bed requested for Telemetry/MedSurg (observation). Status is Inpatient Admission. Condition is Stable. Problem is new. Symptoms have improved. UTI on Admission? No. cp 20:45 18:19 03/15/2018 17:15 Hospitalization Ordered by Glo Webb MD for Inpatient ak1 Admission. Preliminary diagnosis is Hypotension, unspecified; Acute kidney failure. Bed requested for Telemetry/MedSurg (observation). Status is Inpatient Admission. Condition is Stable. Problem is new. Symptoms have improved. UTI on Admission? No. mw
[2018-03-15 17:33] LABS: Urine White Blood Cell Casts OK
[2018-03-15 17:34] LABS: Anisocytosis 1+; Blood Morphology Comment NOTED (NOT SEEN); Platelet Estimate INCR; Platelets, Giant FEW; Polychromasia 1+
--- NOTE | 2018-03-15 17:39 | RAD REPORT ---
EXAM DESCRIPTION: RAD - Femur Right - 03/15/2018 4:51 pm CLINICAL HISTORY: Fall, pelvic, hip and femur pain, prior right femur fracture COMPARISON: Right femur July 2015 FINDINGS: Hardware is in place from prior femur fracture repair. No change in positioning of the rocky dware. No new fracture changes identified. No AVN of the femoral head. Hip joint degenerative changes are present. Mid and distal femur show no fracture or acute findings. No suspicious soft tissue find ing. No air or foreign body in the soft tissues. IMPRESSION: Negative right femur for acute finding. Nonacute findings detailed in the body of the re port.
--- NOTE | 2018-03-15 17:39 | RAD REPORT ---
EXAM DESCRIPTION: RAD - Pelvis - 03/15/2018 4:51 pm CLINICAL HISTORY: Fall, pelvic and hip pain, history of recent colon cancer diagnosis COMPARISON: Pelvis July 2015 TECHNIQUE: AP imaging of the pelvis was obtained. FINDINGS: Surgical hardware is in place from prior proximal right femur fracture repair. Hardware po sitioning has not changed. No acute proximal right femur fracture or dislocation. Proximal left femur is intact with no acute finding. Bilateral hip joint degenerative changes are present. Size of overl melba soft tissue limits upper and mid pelvic assessment. No gross fracture abnormality. Phleboliths i s seen along the pelvic floor. Patient has a very prominent bowel gas pattern not fully assessed. No pneumatosis or free air suspect ed. IMPRESSION: No pelvic fracture or acute finding identifiable. Prominent bowel gas pattern only partially imaged. No free air or pneumatosis seen.
--- NOTE | 2018-03-15 19:18 | P.HP ---
Certification for Inpatient Patient admitted to: Observation With expected LOS: <2 Midnights Practitioner: I am a practitioner with admitting privileges, knowledge of patient current condition, hospital course, and medical plan of care. Services: Services provided to patient in accordance with Admission requirements found in Title 42 Section 412.3 of the Code of Federal Regulations Patient History Date of Service: 03/16/18 History of Present Illness: This is a 67-year-old male with history of recent diagnosis of stage IV colon cancer, microcytic anemia admitted to the hospital for dizziness and generalized weakness. Per family, patient has been dizzy lightheaded for the past 2 days. They state that he has also been very weak unable to really move too much. On the day of admission, he states that he was in the bathroom and he fell from a standing position on his hands and knees. Denies any loss of consciousness, any trauma to the head or any other part of the body. Per family , he has been very weak and has not been really eating or drinking too well. He has a history of anemia. He was also told that he has early pneumonia 2 weeks ago. His colon cancer was diagnosed recently, which Dr. reed. Patient does have an appointment with Dr. Stoddard on . In the ER, he was hypotensive, which responded well to fluids. Labs, he was found to have a creatinine of 2.63 without any prior history of kidney disease, he was also hypernatremic. His chest x-ray though was normal and hemoglobin was stable. At the time of my exam, patient was alert oriented x3, in no acute distress, and his blood pressure had stabilized. Allergies No Known Allergies Allergy (Verified 08/26/17 22:33) Home Medications: Losartan/Hydrochlorothiazide [Losartan-Hctz 50-12.5 mg Tab] 1 each PO DAILY Meloxicam 7.5 mg PO BID PRN 08/26/17 Milk Thistle Seed Extract [Milk Thistle] 250 mg PO DAILY 08/26/17 Folic Acid 1 mg PO DAILY #30 tablet 08/28/17 Potassium Chloride 20 meq PO DAILY #3 tablet.er 08/28/17 Thiamine HCl [Vitamin B-1*] 100 mg PO DAILY #30 tablet 08/28/17 - Past Medical/Surgical History Diabetic: No -: hypertension Psychosocial/ Personal History: Single, 1 child, he does not work. - Family History Brother -: Heart disease - Social History Alcohol use: Yes CD- Drugs: No Caffeine use: No Review of Systems 10-point ROS is otherwise unremarkable Physical Examination - Physical Exam General: Alert, In no apparent distress, Oriented x3 HEENT: Atraumatic, PERRLA, Mucous membr. moist/pink, EOMI, Sclerae nonicteric Neck: Supple, 2+ carotid pulse no bruit, No LAD, Without JVD or thyroid abnormality Respiratory: Clear to auscultation bilaterally, Normal air movement Cardiovascular: Regular rate/rhythm, Normal S1 S2 Gastrointestinal: Normal bowel sounds, No tenderness, Distended Musculoskeletal: No tenderness Integumentary: No rashes Neurological: Normal speech, Normal strength at 5/5 x4 extr, Normal tone, Normal affect - Studies Laboratory Data (last 24 hrs) 03/15/18 15:50: PT 14.6 H, INR 1.23 03/15/18 15:20: WBC 16.2 H, Hgb 11.5 L, Hct 36.4 L, Plt Count 660 H 03/15/18 15:20: Sodium 129 L, Potassium 4.3, BUN 18, Creatinine 2.63 H, Glucose 231 H, Magnesium 1.9, Total Bilirubin 0.5, AST 21, ALT 13, Alkaline Phosphatase 168 H Assessment and Plan - Problems (Diagnosis) (1) Acute renal failure (ARF) Current Visit: Yes Status: Acute (2) Dehydration Current Visit: Yes Status: Acute (3) Anemia Current Visit: Yes Status: Chronic Qualifiers: Anemia type: iron deficiency (4) Cirrhosis, alcoholic Current Visit: No Status: Acute Qualifiers: Ascites presence: unspecified Qualified Code(s): K70.30 - Alcoholic cirrhosis of liver without ascites - Plan This is a 67-year-old male with: Acute renal failure Dehydration Hyponatremia Microcytic anemia Obesity Alcohol dependence/history Admit patient to floor Continue IV fluids Chest x-ray normal, WBC elevated. Patient is status post antibiotics in the ER. Will hold off on antibiotics right now, repeat chest x-ray. Monitor via a.m. labs Monitor blood pressure - Advance Directives Does patient have a Living Will: No Does patient have a Durable POA for Healthcare: No
[2018-03-15] MEDS ORDERED: NA CHLORIDE 0.9% 1,000 ML ONE (19:32)
[2018-03-15 21:18] VITALS: BMI 30.7
[2018-03-15] MEDS: MELATONIN 5 MG TABLET PO PRN (21:23)
[2018-03-15] MEDS: NA CHLORIDE 0.9% 1,000 ML IV SCH (21:24)
[2018-03-15] MEDS: ONDANSETRON 4 MG/2 ML VIAL IV PRN (21:24)
[2018-03-16 04:58] LABS: Absolute Lymphocytes (CBC) 0.7 K/uL (0.7-4.9); Absolute Monocytes 0.7 K/uL (0.1-1.3); Absolute Neutrophil 13.1 K/uL (1.8-8.0); Basophils % 0.1 % (0-1.3); Hematocrit 31.8 % (39.6-49.0); Lymphocytes % 4.7 % (15.3-44.8); MPV 7.2 fL (7.6-11.3); Monocytes % 5.1 % (3.3-12.3)
[2018-03-16 05:21] LABS: Albumin 3.4 g/dL (3.4-5.0); Bilirubin Total 0.4 mg/dL (0.2-1.0); Phosphorus 3.3 mg/dL (2.5-4.9); Potassium 3.1 mmol/L (3.5-5.1); Protein, Total 8.4 g/dL (6.4-8.2)
[2018-03-16] MEDS: NA CHLORIDE 0.9% 1,000 ML IV SCH ×2 (05:39→16:13)
--- NOTE | 2018-03-16 06:19 | EKG ---
Test Date: 2018-03-15 Test Time: 14:51:15 Wellness Coordinator: MEASUREMENT RESULTS: Intervals: Rate: 117 UT: 154 QRSD: 94 QT: 316 QTc: 440 [place]: P: 15 UT: 154 QRS: -14 T: 80 INTERPRETIVE STATEMENTS: Sinus tachycardia with premature atrial complexes Otherwise normal ECG Compared to ECG 08/26/2017 14:14:51 Atrial premature complex(es) now present Sinus rhythm no longer present Electronically Signed On 03-16-18 06:15:28 CLINICAL SUPPORT NURSE by Jarred Turpin
[2018-03-16] MEDS: ONDANSETRON 4 MG/2 ML VIAL IV PRN ×4 (06:33→23:29)
[2018-03-16] MEDS ORDERED: POTASSIUM CL SA 10 MEQ TAB PO ONE (07:00)
[2018-03-16] MEDS ORDERED: ENOXAPARIN 40 MG/0.4 ML SQ SCH (09:00)
--- NOTE | 2018-03-16 10:41 | P.PN ---
Subjective Date of Service: 03/16/18 Patient seen and examined at bedside. No family at bedside. Chart reviewed and case discussed with nursing staff. States that dizziness is slightly better. States he has not urinated since last night, does not sure. Review of Systems 10-point ROS is otherwise unremarkable Physical Examination - Vital Signs Temperature: 97.3 F Blood Pressure: 118/77 Pulse: 130 Respirations: 18 Pulse Ox (%): 95 - Physical Exam General: Alert, Oriented x3, Mild distress HEENT: Atraumatic, PERRLA, EOMI Neck: Supple, JVD not distended Respiratory: Clear to auscultation bilaterally, Normal air movement Cardiovascular: Regular rate/rhythm, Normal S1 S2 Gastrointestinal: Normal bowel sounds, Distended Musculoskeletal: No tenderness Integumentary: No rashes Neurological: Normal speech, Normal tone, Normal affect Lymphatics: No axilla or inguinal lymphadenopathy - Studies Laboratory Data (last 24 hrs) 03/15/18 15:50: PT 14.6 H, INR 1.23 03/15/18 15:20: WBC 16.2 H, Hgb 11.5 L, Hct 36.4 L, Plt Count 660 H 03/15/18 15:20: Sodium 129 L, Potassium 4.3, BUN 18, Creatinine 2.63 H, Glucose 231 H, Magnesium 1.9, Total Bilirubin 0.5, AST 21, ALT 13, Alkaline Phosphatase 168 H Assessment And Plan - Current Problems (Diagnosis) (1) Acute renal failure (ARF) Current Visit: Yes Status: Acute (2) Dehydration Current Visit: Yes Status: Acute (3) Anemia Current Visit: Yes Status: Chronic Qualifiers: Anemia type: iron deficiency (4) Cirrhosis, alcoholic Current Visit: No Status: Acute Qualifiers: Ascites presence: unspecified Qualified Code(s): K70.30 - Alcoholic cirrhosis of liver without ascites - Plan This is a 67-year-old male with: Acute renal failure Decreased urine output Dehydration Hyponatremia improving Continue IV fluids Check bladder scan for urinary retention. May need to straight cath Leukocytosis Patient with a recent pneumonia, also with distended abdomen Repeat chest x-ray pending to evaluate for possible pneumonia Abdominal ultrasound to evaluate for any ascites/abdominal source of infection Monitor via a.m. labs Monitor blood pressure Microcytic anemia H&H remained stable. No evidence of bleeding. Will continue to monitor Obesity Alcohol dependence/history History of cirrhosis
[2018-03-16 13:44] LABS: Calcium Oxalate Crystals- Ur FEW (NONE SEEN); Urine Amorphous Sediment 1+ /HPF (NONE SEEN); Urine Bacteria <20 /HPF (NONE SEEN); Urine Culture Reflex Order NOT NEEDED; Urine RBC <5 /HPF (NONE SEEN)
--- NOTE | 2018-03-16 14:27 | RAD REPORT ---
EXAM DESCRIPTION: RAD - Chest Single View - 03/16/2018 2:10 pm CLINICAL HISTORY: Evaluate pneumonia Chest pain. COMPARISON: Chest Single View dated 03/15/2018; Chest Pa And Lat (2 Views) dated 02/26/2018; Chest Sing le View dated 08/26/2017; Chest Single View dated 07/28/2015 FINDINGS: Portable technique limits examination quality. Linear atelectasis is present in both lung bases, slightly greater on the right. The lungs are underi nflated. The heart is normal in size. No displaced fractures. IMPRESSION: Underinflated lungs with atelectasis in both lung bases, greater on the right.
[2018-03-16] MEDS ORDERED: KCL 20 MEQ/100 mL IVPB 20 MEQ/100 ML BAG IV SCH (20:00)
[2018-03-16] MEDS: MELATONIN 5 MG TABLET PO PRN (20:30)
--- NOTE | 2018-03-16 21:12 | RAD REPORT ---
EXAM DESCRIPTION: US - Abdomen Exam Complete - 03/16/2018 8:51 pm CLINICAL HISTORY: Abdominal pain. History of cirrhosis, with abdominal distention COMPARISON: Abdomen Exam Complete dated 02/27/2018; Abdomen Exam Complete dated 08/28/2017; Abdomen Pelvis W Contrast dated 08/26/2017 FINDINGS: Diffusely heterogenous and nodular contour of the liver compatible with cirrhosis is seen. Vague hypoechoic rounded lesion is seen in the right lobe measuring 2.2 x 2.1 cm The gallbladder demonstrates no gallstones, pericholecystic fluid or gallbladder wall thickening. Co mmon bile duct is normal in caliber measuring 4 mm. Both kidneys are normal in size, shape and echotexture. No hydronephrosis. Small bilateral renal cyst s are present. The spleen is moderately enlarged measuring 15 cm. The pancreas and aorta are obscured by bowel gas. The visualized aspects of the IVC are grossly normal. Mild ascites. IMPRESSION: Liver cirrhosis is seen with vague 2.2 x 2.1 cm lesion in the right lobe of the liver se en. This lesion was seen previously on the 02/27/2018 study and may represent a mass or an area of fa tty sparing. Followup MR liver protocol with contrast would be helpful. Mild ascites. Moderate splenomegaly.
[2018-03-17] MEDS: ONDANSETRON 4 MG/2 ML VIAL IV PRN ×3 (04:19→13:24)
[2018-03-17] MEDS: NA CHLORIDE 0.9% 1,000 ML IV SCH ×3 (04:21→13:24)
[2018-03-17 04:53] LABS: Absolute Monocytes 0.7 K/uL (0.1-1.3); Absolute Neutrophil 8.3 K/uL (1.8-8.0); Basophils % 0.3 % (0-1.3); Eosinophils % 0.1 % (0-4.4); Hematocrit 32.2 % (39.6-49.0); Lymphocytes % 10.2 % (15.3-44.8); Monocytes % 7.1 % (3.3-12.3); RBC Red Blood Cell Count 4.74 M/uL (4.33-5.43)
[2018-03-17 05:10] LABS: Albumin 3.5 g/dL (3.4-5.0); Bilirubin Total 0.4 mg/dL (0.2-1.0); Potassium 4.2 mmol/L (3.5-5.1); Protein, Total 8.4 g/dL (6.4-8.2)
[2018-03-17] MEDS: ENOXAPARIN 30 MG/0.3 ML SQ SCH (08:55)
[2018-03-17] MEDS ORDERED: HYDROCODONE/APAP 7.5/325 MG TAB PO PRN (15:53)
--- NOTE | 2018-03-17 15:53 | P.PN ---
Subjective Date of Service: 03/17/18 Primary Care Provider: JORDON-Dr. Bone Subjective: Other (Patient still with nausea this afternoon.) Physical Examination - Vital Signs Temperature: 97.7 F Blood Pressure: 111/79 Pulse: 114 Respirations: 18 Pulse Ox (%): 95 - Physical Exam General: Alert, In no apparent distress, Oriented x3, Cooperative HEENT: Atraumatic Neck: Supple Respiratory: Clear to auscultation bilaterally, Normal air movement Cardiovascular: Abnormal pulses (Sinus tachycardia) Gastrointestinal: Hypoactive, Other (Distention noted to the abdomen.), Distended Neurological: Normal speech, Normal strength at 5/5 x4 extr, Normal tone - Studies Medications List Reviewed: Yes Assessment & Plan Discharge Plan: Other (Transfer verses other) Plan to discharge in: Greater than 2 days Physician Review Additional Text: Impression: Nausea, vomiting and Abdominal distension complicated with stage IV colon cancer to hepatic flexure with metastasis to the liver Acute on chronic renal failure Alcoholic liver cirrhosis Alcohol abuse Tobacco abuse Severe malnutrition Anemia likely secondary to chronic disease-colon cancer Plan: Nausea, vomiting and Abdominal distension complicated with stage IV colon cancer to hepatic flexure with metastasis to the liver: Will keep the patient NPO. Discuss case with GI. Will discuss case with Oncology about plan of care. Case discussed with surgery who will assess patient. Patient may require transfer to higher level of care if surgery is an option. If surgery is not option will need to consider hospice. Await recommendations from oncology and surgery. Will place NG tube. Acute on chronic renal failure: Continue IV fluids. Consult nephrology for further recommendation. Alcoholic liver cirrhosis: Will monitor closely Alcohol abuse: Cessation addressed in detail. Tobacco abuse: Will provide nicotine patch. Severe malnutrition: Secondary to above. Patient will remain NPO due to above. Anemia likely secondary to chronic disease-colon cancer: Will monitor closely. Time Spent Managing Pts Care (In Minutes): 55
[2018-03-17] MEDS: TRAMADOL HCL 50 MG TAB PO PRN (16:32)
--- NOTE | 2018-03-17 16:55 | P.CNS ---
Date of Consult: 03/17/18 Reason for Consult: JUAN M Requesting Physician: Varghese Montes Primary Care Provider: JORDON-Dr. Bone Chief Complaint: Weakness and Dizziness complicated by a fall History of Present Illness: 67 yo WM Alcoholic cirrhosis presented to the ER after a fall at home complicated by weakness and dizziness. The patient is unable to give an adequate HPI/ ROS. The son reports that the patient was home alone when he fell due to weakness and dizziness on his way to the bathroom. He was able to get himself up and callled his son. He told his son that he needed to go to the doctor. He reports a history of excessive NSAIDs but states that he takes much less now for his right should pain. Review of his medication list demonstrates twice daily Meloxican. He is unable able give a clear history regarding his bladder but does report that he does not always empty it completely. This is a 67-year-old male with history of recent diagnosis of stage IV colon cancer, microcytic anemia admitted to the hospital for dizziness and generalized weakness. Per family, patient has been dizzy lightheaded for the past 2 days. They state that he has also been very weak unable to really move too much. On the day of admission, he states that he was in the bathroom and he fell from a standing position on his hands and knees. Denies any loss of consciousness, any trauma to the head or any other part of the body. Per family , he has been very weak and has not been really eating or drinking too well. He has a history of anemia. He was also told that he has early pneumonia 2 weeks ago. His colon cancer was diagnosed recently, which Dr. reed. Patient does have an appointment with Dr. Stoddard on . In the ER, he was hypotensive, which responded well to fluids. Labs, he was found to have a creatinine of 2.63 without any prior history of kidney disease, he was also hypernatremic. His chest x-ray though was normal and hemoglobin was stable. At the time of my exam, patient was alert oriented x3, in no acute distress, and his blood pressure had stabilized. 14:30 This 67 yrs old Male presents to ER via Wheelchair with complaints of Fall cp Injury, Breathing Difficulty. 14:30 Details of fall: The patient fell from an upright position, while standing. Onset: The cp symptoms/episode began/occurred today. Associated injuries: The patient sustained injury to the head, contusion, right upper leg. 14:30 Patient reports he became dizzy and fell striking right side of head and right upper cp leg on ground. Allergies No Known Allergies Allergy (Verified 08/26/17 22:33) Home medications list reviewed: Yes - Past Medical/Surgical History Diabetic: Yes -: hypertension -: colon ca -: cirrhosis -: anemic -: pneumonia Psychosocial/ Personal History: Single, 1 child, he does not work. - Family History Brother Medical History: Heart disease - Social History Alcohol use: Yes CD- Drugs: No Caffeine use: No Place of Residence: Home Review of Systems 10-point ROS is otherwise unremarkable General: Weakness Respiratory: SOB with Excertion Gastrointestinal: Distention Musculoskeletal: Shoulder Pain Neurological: Weakness Physical Examination Temp Pulse Resp BP Pulse Ox 97.7 F 114 H 18 111/79 95 03/17/18 16:19 03/17/18 16:19 03/17/18 16:19 03/17/18 16:19 03/17/18 16:19 General: In no apparent distress, Cooperative HEENT: Atraumatic Neck: Supple Respiratory: Clear to auscultation bilaterally, Diminished Cardiovascular: No edema, Regular rate/rhythm, No rubs Gastrointestinal: Rigidity, Distended, Tenderness Musculoskeletal: No clubbing, No contractures, No warmth Integumentary: No rashes, No cyanosis Neurological: Normal speech Blood work reviewed in the chart. Cr 2.36; Na 133 Imagings Data: EXAM DESCRIPTION: US - Abdomen Exam Complete - 03/16/2018 8:51 pm CLINICAL HISTORY: Abdominal pain. History of cirrhosis, with abdominal distention COMPARISON: Abdomen Exam Complete dated 02/27/2018; Abdomen Exam Complete dated 08/28/2017; Abdomen Pelvis W Contrast dated 08/26/2017 FINDINGS: Diffusely heterogenous and nodular contour of the liver compatible with cirrhosis is seen. Vague hypoechoic rounded lesion is seen in the right lobe measuring 2.2 x 2.1 cm The gallbladder demonstrates no gallstones, pericholecystic fluid or gallbladder wall thickening. Common bile duct is normal in caliber measuring 4 mm. Both kidneys are normal in size, shape and echotexture. No hydronephrosis. Small bilateral renal cysts are present. The spleen is moderately enlarged measuring 15 cm. The pancreas and aorta are obscured by bowel gas. The visualized aspects of the IVC are grossly normal. Mild ascites. IMPRESSION: Liver cirrhosis is seen with vague 2.2 x 2.1 cm lesion in the right lobe of the liver seen. This lesion was seen previously on the 02/27/2018 study and may represent a mass or an area of fatty sparing. Followup MR liver protocol with contrast would be helpful. Mild ascites. Moderate splenomegaly. EXAM DESCRIPTION: RAD - Chest Single View - 03/16/2018 2:10 pm CLINICAL HISTORY: Evaluate pneumonia Chest pain. COMPARISON: Chest Single View dated 03/15/2018; Chest Pa And Lat (2 Views) dated 02/26/2018; Chest Single View dated 08/26/2017; Chest Single View dated 07/28/2015 FINDINGS: Portable technique limits examination quality. Linear atelectasis is present in both lung bases, slightly greater on the right. The lungs are underinflated. The heart is normal in size. No displaced fractures. IMPRESSION: Underinflated lungs with atelectasis in both lung bases, greater on the right. Echocardiogram [id number]: MILD TRICUSPID REGURGITATION. NORMAL RIGHT VENTRICULAR SYSTOLIC PRESSURE. LEFT ATRIAL ENLARGEMENT. NORMAL LEFT VENTRICULAR SIZE AND FUNCTION. NO WALL MOTION ABNORMALITY. NO EFFUSION. Conclusions/Impression: A JUAN M likely due to hypovolemia and chronic NSAIDs. Hyponatremia. Hypokalemia. Acidosis. Hyperglycemia suspicious for DM. Diastolic CHF, chronic. Alcoholic liver cirrhosis with ascites. Reduced but continuous alcohol intake. Microcytic anemia in chronic illness. Colon cancer. P/ Continue current POC and Medications. Agree with IVF. Replete lytes as ordered. Will give bicarb as needed. Check iron levels. Transfuse as needed. Consider a paracentesis. Consider a MVI. No NSAIDs. AM labs. Daily weight. Thank you kindly for the consultation.
--- NOTE | 2018-03-17 17:14 | ECHO ---
HEIGHT: 5 ft 10 in WEIGHT: 214 lb 6.4 oz DATE OF STUDY: 03/17/[address]: Varghese Montes DO 2-DIMENSIONAL: YES M.MODE: YES DOPPLER: YES COLOR FLOW: YES TDS: YES PORTABLE: DEFINITY: BUBBLE STUDY: DIAGNOSIS: EVALUATE HEART FOR CAD. CARDIAC HISTORY: CATHERIZATION: NO SURGERY: NO PROSTHETIC VALVE: NO PACEMAKER: NO MEASUREMENTS (cm) DIASTOLIC (NORMALS) SYSTOLIC (NORMALS) IVSd 1.1 (0.6-1.2) LA Diam 4.1 (1.9-4.0) LVEF 74% LVIDd 4.8 (3.5-5.7) LVIDs 2.7 (2.0-3.5) %FS 43% LVPWd 1.1 (0.6-1.2) Ao Diam 2.7 (2.0-3.7) 2 DIMENSIONAL ASSESSMENT: RIGHT ATRIUM: NORMAL LEFT ATRIUM: DILATED RIGHT VENTRICLE: NORMAL LEFT VENTRICLE: NORMAL TRICUSPID VALVE: NORMAL MITRAL VALVE: MITRAL ANNULAR CALCIFICATION PULMONIC VALVE: NORMAL AORTIC VALVE: MILD SCLEROSIS PERICARDIAL EFFUSION: NONE AORTIC ROOT: NORMAL LEFT VENTRICULAR WALL MOTION: NORMAL DOPPLER/COLOR FLOW: IMPAIRED LEFT VENTRICULAR RELAXATION. TRACE MITRAL REGURGITATION. COMMENTS: NORMAL LEFT VENTRICULAR EJECTION FRACTION. MITRAL ANNULAR CALCIFICATION. MILD AORTIC SCLEROSIS WITH NO AORTIC STENOSIS OR AORTIC REGURGITATION. IMPAIRED LEFT VENTRICULAR RELAXATION. TRACE MITRAL REGURGITATION. TECHNOLOGIST: LUPILLO HICKS
--- NOTE | 2018-03-17 20:34 | RAD REPORT ---
EXAM DESCRIPTION: RAD - Abdomen Acute Series - 03/17/2018 8:22 pm CLINICAL HISTORY: Abdominal pain FINDINGS: Lungs appear clear of acute infiltrate. Free air is not seen beneath the diaphragm. Large and small bowel are moderately dilated. Most likely this represents an adynamic ileus. A coloni c obstruction is considered less likely. Followup abdominal plain film series is recommended
[2018-03-17] MEDS: MORPHINE 2 MG/ML SYR IV PRN (21:54)
[2018-03-17] MEDS: LACTULOSE 20 GM/30 ML UCUP PO SCH (21:55)
[2018-03-17] MEDS: MELATONIN 5 MG TABLET PO PRN (21:56)
--- NOTE | 2018-03-17 22:43 | CON ---
Date of Consultation: 03/17/2018 Diagnosis: Colon cancer, possible bowel obstruction. History Of Present Illness: This is the case of a 67-year-old patient, apparently was diagnosed with colon cancer in August of last year. The patient apparently also have a colonoscopy with a fungating 4 cm mass in that area confirmed with colon cancer. At that moment also CAT scan done at that time s hows that there is some possible metastatic lesions since there was a mass in the CAT scan. The radha ent went into an other GI doctor about 2 weeks ago and once again diagnosed with colon cancer and had an appointment this same week with Dr. Stoddard, colorectal surgeon in [place]. The patient came over h ere after he fell, he was found to be hypernatremic with nausea and vomiting, the patient was admitte d to the hospital. Even though, the patient is stable at this moment. The patient still had some ab dominal distention and the x-rays that was done 2 days ago. The chest x-ray shows some distended bow el loops although the x-ray does not include the entire bowel, it shows some evidence that may be con sistent with some bowel obstruction. Surgical consult was obtained. Past Medical History: Include once again diagnosed with colon cancer, untreated. Hypertension. The re is mentioned in the chart something about cirrhosis, although the patient does not give a history of that. Social History: He use alcohol occasionally. He does not smoke. Family History: Includes a brother with heart disease. Review of Systems: Constitutional: Denies any fever. Gastrointestinal: States some nausea, but no vomiting. No melen a, no hematochezia. Respiratory: Denies any shortness of breath. The patient is awake and alert. HEENT: Pupils are equal and reactive. Anicteric. Neck: Supple. Chest: Clear. Abdomen: Softly distended. Probably some ascites component on it. No guarding or rebound. Rectal: Deferred. Extremities: Good capillary refill. Laboratory Data: Blood work shows WBC count of 10.1, he came originally 2 days ago with 16.2, and he moglobin of 11.5, INR of 1.23. Sodium is 133, creatinine is 2.36. Total bilirubin of 0.4, AST 38, A LT 15, alkaline phosphate 142. He had an ultrasound done yesterday of the abdomen showing liver mass . MRI was recommended. Assessment: A 67-year-old patient with known history of colon cancer since last August, but he has not treated yet despite advice. He had an appointment this with his colorectal surgeon in [facility], shows of a year after having some hypernatremia, some nausea, vomiting and weakness, medically they have been working for him, today they noticed still the abdomen distended, they call us for eval uation. Knowing the history of colorectal disease and liver mets, we explained to him the differenti al diagnosis of that and will recommend once again this patient to be seen in a tertiary center by Co lorectal surgery. The address not only the colon tumor but also the other comorbidities. I do not h ave any x-rays at this moment of abdomen. We are going to at least get an x-ray of the [place] [facility] [place] and looking for evidence of obstruction. He may require the CAT scan. I called Dong Stoddard right now on his cell phone, trying to get in contact with him since he may know about the pa tient to see a possibility of a transfer, if the x-ray is positive for bowel obstruction, we might do a CAT scan, but if he is going to be treated in another center, then the CAT scan may be done in the [facility] institution, same with MRI of the liver. The patient is not vomiting or nausea right now, although NG tube is on hold at least to the x-rays. The patient has no peritonitis at this moment. MALIA/SINCERE Voice ID: [id number] Report ID: [id number]
[2018-03-18] MEDS: NA CHLORIDE 0.9% 1,000 ML IV SCH ×2 (05:05→17:14)
[2018-03-18 05:40] LABS: Absolute Lymphocytes (CBC) 1.3 K/uL (0.7-4.9); Absolute Neutrophil 6.5 K/uL (1.8-8.0); Basophils % 0.3 % (0-1.3); Eosinophils % 0.8 % (0-4.4); Hematocrit 28.9 % (39.6-49.0); Lymphocytes % 14.9 % (15.3-44.8); MPV 6.8 fL (7.6-11.3); Monocytes % 11.2 % (3.3-12.3); RBC Red Blood Cell Count 4.26 M/uL (4.33-5.43)
[2018-03-18 05:59] LABS: Albumin 2.9 g/dL (3.4-5.0); Bilirubin Total 0.5 mg/dL (0.2-1.0); Magnesium 1.8 mg/dL (1.8-2.4); Phosphorus 2.4 mg/dL (2.5-4.9); Protein, Total 7.2 g/dL (6.4-8.2); Uric Acid 7.2 mg/dL (3.5-7.2)
[2018-03-18] MEDS: TRAMADOL HCL 50 MG TAB PO PRN ×2 (08:46→18:32)
[2018-03-18] MEDS: ENOXAPARIN 30 MG/0.3 ML SQ SCH (08:47)
[2018-03-18] MEDS: LACTULOSE 20 GM/30 ML UCUP PO SCH ×2 (08:48→20:17)
[2018-03-18 13:01] LABS: Ferritin 6.9 ng/mL (26-388)
--- NOTE | 2018-03-18 13:45 | P.DS ---
Admission Date: 03/16/18 Discharge Date: 03/18/18 Primary Care Provider: GI-Dr. Bone Disposition: TRANSFER TO [facility] Discharge Condition: GOOD Reason for Admission: Weakness and Dizziness complicated by a fall Consultations: Surgery-Dr. Dalal Nephrology-Dr. Campos Hematology/Oncology-Dr. Hernandez Procedures: CT head: COMPARISON: None. TECHNIQUE: Axial 5 mm thick images of the head were obtained. Axial 2 mm thick images of the cervical spine were obtained with sagittal and coronal reconstruction images generated and reviewed. All CT scans are performed using dose optimization technique as appropriate and may include automated exposure control or mA/KV adjustment according to patient size. FINDINGS: No intracranial hemorrhage, mass, edema or acute intracranial finding. No suspicion for acute infarction. No cortical edema or sulcal effacement. Moderate severity atrophy and chronic ischemic changes are present. Ventricles are in proportion to volume loss. Mastoid air cells are clear. Acute and chronic sinusitis left maxillary sinus. No globe or orbit abnormality seen. Cervical body height and alignment are normal. All disc spaces are narrowed except for C2-3. Prominent degenerative change present involves dens and the anterior arch C1. Mild bilateral foraminal encroachment at C3-4 from uncovertebral joint hypertrophy. Posterior disc bulge and endplate spurring changes C4-5 cause borderline spinal stenosis and significant bilateral foraminal stenosis. Patient has large posterior endplate spurring at C5-6 and C6 -7 with central spinal stenosis and prominent foraminal stenosis. No fracture or acute bony abnormality. Central canal detail is inherently limited. No paraspinal mass or hematoma. IMPRESSION: Atrophy and chronic ischemic change with no acute intracranial finding. Advanced cervical spine degenerative change with central spinal stenosis C5-7 with significant multilevel bony foraminal stenosis. No fracture or acute cervical spine finding. ABUS: COMPARISON: Abdomen Exam Complete dated 02/27/2018; Abdomen Exam Complete dated 08/28/2017; Abdomen Pelvis W Contrast dated 08/26/2017 FINDINGS: Diffusely heterogenous and nodular contour of the liver compatible with cirrhosis is seen. Vague hypoechoic rounded lesion is seen in the right lobe measuring 2.2 x 2.1 cm The gallbladder demonstrates no gallstones, pericholecystic fluid or gallbladder wall thickening. Common bile duct is normal in caliber measuring 4 mm. Both kidneys are normal in size, shape and echotexture. No hydronephrosis. Small bilateral renal cysts are present. The spleen is moderately enlarged measuring 15 cm. The pancreas and aorta are obscured by bowel gas. The visualized aspects of the IVC are grossly normal. Mild ascites. IMPRESSION: Liver cirrhosis is seen with vague 2.2 x 2.1 cm lesion in the right lobe of the liver seen. This lesion was seen previously on the 02/27/2018 study and may represent a mass or an area of fatty sparing. Followup MR liver protocol with contrast would be helpful. Small bowel series: FINDINGS: Lungs appear clear of acute infiltrate. Free air is not seen beneath the diaphragm. Large and small bowel are moderately dilated. Most likely this represents an adynamic ileus. A colonic obstruction is considered less likely. Followup abdominal plain film series is recommended Medical problem list: Fatigue, Nausea, vomiting and abdominal distension suspect adynamic ileus complicated with colon cancer to hepatic flexure with possible metastasis to the liver 2.2 x 2.1 cm lesion in the right lobe of the liver suspect metastasis versus primary mass Acute renal injury secondary to chronic NSAID use and hypovolemia Alcoholic liver cirrhosis with mild ascites Alcohol abuse Tobacco abuse Severe malnutrition Anemia likely secondary to chronic disease-colon cancer with iron deficiency Chronic back pain with noted spinal stenosis to the C5 through C7 with DJD with DDD. Brief History of Present Illness: 67-year-old male presented to emergency room with increasing fatigue. Patient was not able to get up. Patient with history of liver cirrhosis and colon cancer. The patient appeared dehydrated. Patient admitted for treatment. Hospital Course: Patient presented with fatigue. Patient also had symptoms of nausea, vomiting and abdominal distention. His history is complicated with noted alcoholic liver cirrhosis and colon cancer. His colon cancer was diagnosed in August of last year. He was to follow up with surgery at [facility] in [place] after that time. Patient has yet to do this. He recently saw another GI doctor who recommended surgery evaluation. The patient was to see surgery prior to admission. Patient also presented with dehydration and acute renal injury. The patient was started on IV fluids. Apparently the patient was taking NSAIDs for pain control. Acute renal injury likely related to chronic NSAID use and hypovolemia. Patient received IV fluids. Nephrology, surgery and Hematology- oncology were consulted. His renal function is back to baseline. Patient continued to have increased nausea, vomiting and abdominal distention. Small bowel series shows adynamic ileus. Surgery consulted to further evaluate his condition. Surgery recommends that the patient be transferred to a tertiary care center for further evaluation and treatment of the colon cancer with possible metastasis to the liver. Patient had 4 cm colon cancer to the hepatic flexure back in August of 2017. Patient is high risk of obstruction. Surgery recommends the patient will require hepatology evaluation along with GI and surgery prior to surgery. Patient found to have a 2.2 x 2.1 cm lesion to the right lobe. This is suspicious for metastatic disease versus another primary cancer. Patient would require higher level of care to further evaluate his condition. Hematology-oncology suspects that with surgery this may be curable if this is not metastatic disease. Surgery was able to get in contact with surgeon-Dr. Stoddard at [facility] who the patient was to see. Dr. Stoddard has agreed to accept the patient. I did speak to Dr. Stoddard as well. Patient will be transferred to further evaluate his condition. Patient will likely require hepatic biopsy with possible surgery. Patient remains NPO. Patient with history of alcoholic liver cirrhosis with mild ascites. Abdominal x-ray showed mild ascites. Patient will need to be evaluated by hepatology determine the level of cirrhosis prior to surgery. Once stable patient will need to continue with lactulose twice daily. Patient with alcohol and tobacco abuse. Cessation addressed in detail. Patient was severe malnutrition likely related to his underlying cancer. This will be further addressed while in the hospital. Patient found to be with anemia. This is likely of chronic disease. Suspect iron deficiency. Hematology recommends to evaluate for iron deficiency. If so patient will require IV iron. X-ray shows chronic back pain with spinal stenosis to the C5-C7 region. Patient would benefit with medication for pain. Patient will require continued physical therapy. Patient with history of hypertension. Blood pressure medication currently on hold. Vital Signs/Physical Exam: Temp Pulse Resp BP Pulse Ox 97.5 F 103 H 18 122/69 94 03/18/18 12:00 03/18/18 12:00 03/18/18 12:00 03/18/18 12:03/18/18 12:00 General: Alert, In no apparent distress, Oriented x3, Cooperative HEENT: Atraumatic Neck: Supple Respiratory: Clear to auscultation bilaterally, Normal air movement Cardiovascular: Normal pulses, Regular rate/rhythm Gastrointestinal: Hypoactive, Distended (Some distention noted to the abdomen. Unchanged since yesterday), Tenderness (Tenderness to the right upper quadrant) Neurological: Normal speech, Normal strength at 5/5 x4 extr, Normal tone Laboratory Data at Discharge: WBC 8.9 K/uL (4.3-10.9) 03/18/18 05:28 Hgb 9.1 g/dL (13.6-17.9) L 03/18/18 05:28 Hct 28.9 % (39.6-49.0) L 03/18/18 05:28 Plt Count 404 K/uL (152-406) 03/18/18 05:28 PT 14.6 SECONDS (9.5-12.5) H 03/15/18 15:50 INR 1.23 03/15/18 15:50 Sodium 137 mmol/L (136-145) 03/18/18 05:28 Potassium 4.0 mmol/L (3.5-5.1) 03/18/18 05:28 BUN 30 mg/dL (7-18) H 03/18/18 05:28 Creatinine 1.21 mg/dL (0.55-1.3) D 03/18/18 05:28 Glucose 123 mg/dL (74-106) H 03/18/18 05:28 Uric Acid 7.2 mg/dL (3.5-7.2) 03/18/18 05:28 Phosphorus 2.4 mg/dL (2.5-4.9) L 03/18/18 05:28 Magnesium 1.8 mg/dL (1.8-2.4) 03/18/18 05:28 Total Bilirubin 0.5 mg/dL (0.2-1.0) 03/18/18 05:28 AST 38 U/L (15-37) H 03/18/18 05:28 ALT 21 U/L (12-78) 03/18/18 05:28 Alkaline Phosphatase 145 U/L (45-117) H 03/18/18 05:28 Patient Discharge Instructions: 1. Patient be transferred to higher level of care center to further evaluate his condition. Patient currently NPO. Diet: NPO Activity: Fall precautions Time spent managing pt's care (in minutes): 55
[2018-03-18] MEDS: MORPHINE 2 MG/ML SYR IV PRN ×2 (13:59→20:01)
[2018-03-18 15:09] LABS: Urine Appearance CLEAR; Urine Blood NEGATIVE (NEG); Urine Color YELLOW; Urine Glucose NEGATIVE (NEG); Urine Protein TRACE (NEG); Urine Specific Gravity 1.025 (1.005-1.030)
[2018-03-18 15:47] LABS: Urine Bilirubin NEGATIVE (NEG)
[2018-03-18 16:13] LABS: Urine Bacteria NONE SEEN /HPF (NONE SEEN); Urine Culture Reflex Order NOT NEEDED; Urine RBC <5 /HPF (NONE SEEN)
--- NOTE | 2018-03-18 16:21 | P.CNS ---
Date of Consult: 03/18/18 (Oncology) REASON FOR CONSULTATION: COLON CANCER. Pt seen and examined this morning around 8.30 am. Son was at bedside. HPI: Apparently pt had a colonoscopy last Sep 2017 when he was found to have a colon mass but unclear why he did not have any further intervention until now. As per son, patient was unaware that the colonoscopy had showed cancer. He came to know he had colon cancer when he saw a new gasteroenterologist Dr Bone, a few weeks ago. He was advised to see Dr Stoddard (colorectal surgeon) in [place]. In the meantime, he is admitted due to worsening fatigue, weakness, abdominal distention and found to be anemic and in acute renal failure. USG abdomen shows a ~2cm liver lesion as well. His last CT imaging is about 6 months ago which showed a 4 cm hepatic flexure mass in the colon. No liver lesions at that time. Pt reports worsening abdominal distention past few days. He has not had a BM atleast since admission but passing minimal amount of gas. He is not aware of change in stool caliber or color. Reports stable appetite though felt he was gradually losing weight and getting more fatigued. A 14 point ROS was done and pertinent points as in HPI PMH: He does not report any pertinent medical problems and does not have a pcp; Chart review reported HTN, ?Hep C, alcoholic liver disease with ascitis PSh: right femoral fracture repair. SH: Heavy alcohol/ beer user (6-12 pk in 2-3 days) though claims to have cut down lately. Denies smoking and drug abuse Allergies; NKA Home meds: lisinopril, folic acid, thiamine EXAM: ECOG 2 Vitals stable: Gen: Comfortable, appears to be in no acute distress, visible distended abdomen Head: normocephalic, atraumatic. Eyes: anicteric, no injection of conjunctivae. Ears: hearing grossly intact. Nose: nares patent. Throat: no erythema, no exudate. Neck: neck supple, without lymphadenopathy. Respiratory: good respiratory effort, clear to auscultation, no wheezing. Cardiovascular: regular rate and rhythm, no murmurs, no cyanosis. Abdomen: Distended, ascitis, bowel sounds present Peripheral Vascular: no pedal edema. Neurological: AAOx3, moving all extremities. Lymph: no palpable LAD Labs reviewed: Hb 9.1 MCV 67 WBC 8.9/ plt 404 Cr 1.2 (2.3) PT 14; PTT 24 Bi 0.5 ALT 38/AST 25/ ALP 145 PROBLEMS/ RECOMMENDATIONS: 1. Colon cancer: Based on available information, it appears he was diagnosed with colon cancer in Sep 2017. Need confirmatory pathology report from his gasteroenterologist. Likely he might have metastatic disease in the liver as revealed by USG. But he will need a comprehensive work up including imaging with CT chest, abdomen, pelvis to assess any other metastatic lesions. Should there be just oligometastasis, a biopsy is needed to confirm the metastatic disease. In an ideal patient and setting, we could aim for colon mass resection and also the liver mass resection following which he will need adjuvant chemotherapy. Underlying liver disease/ cirrhosis could be quite challenging for any mode of treatment, be it surgery or chemotherapy. There is a possibility that the colon mass could be obstructing at this time and he is being transferred for higher level care where he will be evaluated by a colorectal surgeon with a corporate banking officer and liver surgeon on board. An overview of possible treatment scenarios was discussed with patient and his son. He will need to follow up as outpatient for a further comprehensive discussion regarding treatment plans, prognosis etc. Check cea. 2. Iron deficiency anemia: Due to occult losses. Check iron panel and fortify with IV ferrelicit 250mg IV daily x 4 days. 3. Liver disease/ cirrhosis/ ascitis: Status of liver disease needs to be evaluated as well by GI/ hepatology to evaluate tolerance and prognosis. Thank you for asking me to see the patient. Patient and his son were advised to follow up with us as outpatient for further management.
[2018-03-18] MEDS: ONDANSETRON 4 MG/2 ML VIAL IV PRN (20:01)
--- NOTE | 2018-03-18 20:17 | P.PN ---
Date of Service: 03/18/18 Vital Signs Temp Pulse Resp BP Pulse Ox 98 F 121 H 18 123/80 95 03/18/18 16:00 03/18/18 16:00 03/18/18 16:00 03/18/18 16:00 03/18/18 16:00 Medications Hydrocodone Bitart/Acetaminophen ([place] 7.5/325 Mg) 1 tab PO Q6H PRN PRN Reason: Pain scale 8-10 (Severe) Stop: 04/16/18 15:54 Enoxaparin Sodium (Lovenox 30 Mg Inj) 30 mg SQ DAILY [facility] Stop: 04/16/18 09:01 Last Admin: 03/18/18 08:47 Dose: 30 mg Sodium Chloride (Ns 1000 Ml Ivbag) 1,000 mls @ 75 mls/hr IV .[id number] [facility] Stop: 04/16/18 13:01 Last Admin: 03/18/18 17:14 Dose: 1,000 mls Lactulose (Cephulac) 10 gm PO BID [facility] Stop: 04/16/18 21:01 Last Admin: 03/18/18 08:48 Dose: 10 gm Melatonin (Melatonin) 5 mg PO BEDTIME PRN PRN PRN Reason: INSOMNIA Stop: 04/14/18 20:14 Last Admin: 03/17/18 21:56 Dose: 5 mg Morphine Sulfate (Morphine Sulfate) 2 mg IV Q6H PRN PRN Reason: Pain scale 5-7 (Moderate) Stop: 04/16/18 16:22 Last Admin: 03/18/18 20:01 Dose: 2 mg Ondansetron HCl (Zofran) 4 mg IV Q4H PRN PRN Reason: NAUSEA / VOMITING Stop: 04/15/18 17:11 Last Admin: 03/18/18 20:01 Dose: 4 mg Sodium Chloride (Normal Saline Flush) 10 ml IV BID [facility] Stop: 04/14/18 21:01 Last Admin: 03/18/18 09:00 Dose: Not Given Tramadol HCl (Ultram) 50 mg PO TID PRN PRN Reason: Pain scale 5-7 (Moderate) Stop: 04/16/18 15:54 Last Admin: 03/18/18 18:32 Dose: 50 mg Microbiology Results 03/15/18 23:31 Blood - Blood Aerobic Blood Culture - Preliminary No growth in 24 hours. 02/02/19 23:31 Blood - Blood Anaerobic Blood Culture - Preliminary No growth in 24 hours. Assessment/ Plan: Nephrology Feeling better. CPS stable without CP or SOB. +RAUSCH No acute events overnight. Vitals, medications, blood work and imaging reviewed in the chart. General: In no apparent distress, Cooperative HEENT: Atraumatic Neck: Supple Respiratory: Clear to auscultation bilaterally, Diminished Cardiovascular: No edema, Regular rate/rhythm, No rubs Gastrointestinal: Rigidity, Distended, Tenderness Musculoskeletal: No clubbing, No contractures, No warmth Integumentary: No rashes, No cyanosis Neurological: Normal speech Blood work reviewed in the chart. Cr 2.36; Na 133 Imagings Data: EXAM DESCRIPTION: US - Abdomen Exam Complete - 03/16/2018 8:51 pm CLINICAL HISTORY: Abdominal pain. History of cirrhosis, with abdominal distention COMPARISON: Abdomen Exam Complete dated 02/27/2018; Abdomen Exam Complete dated 08/28/2017; Abdomen Pelvis W Contrast dated 08/26/2017 FINDINGS: Diffusely heterogenous and nodular contour of the liver compatible with cirrhosis is seen. Vague hypoechoic rounded lesion is seen in the right lobe measuring 2.2 x 2.1 cm The gallbladder demonstrates no gallstones, pericholecystic fluid or gallbladder wall thickening. Common bile duct is normal in caliber measuring 4 mm. Both kidneys are normal in size, shape and echotexture. No hydronephrosis. Small bilateral renal cysts are present. The spleen is moderately enlarged measuring 15 cm. The pancreas and aorta are obscured by bowel gas. The visualized aspects of the IVC are grossly normal. Mild ascites. IMPRESSION: Liver cirrhosis is seen with vague 2.2 x 2.1 cm lesion in the right lobe of the liver seen. This lesion was seen previously on the 02/27/2018 study and may represent a mass or an area of fatty sparing. Followup MR liver protocol with contrast would be helpful. Mild ascites. Moderate splenomegaly. EXAM DESCRIPTION: RAD - Chest Single View - 03/16/2018 2:10 pm CLINICAL HISTORY: Evaluate pneumonia Chest pain. COMPARISON: Chest Single View dated 03/15/2018; Chest Pa And Lat (2 Views) dated 02/26/2018; Chest Single View dated 08/26/2017; Chest Single View dated 07/28/2015 FINDINGS: Portable technique limits examination quality. Linear atelectasis is present in both lung bases, slightly greater on the right. The lungs are underinflated. The heart is normal in size. No displaced fractures. IMPRESSION: Underinflated lungs with atelectasis in both lung bases, greater on the right. Echocardiogram [id number]: MILD TRICUSPID REGURGITATION. NORMAL RIGHT VENTRICULAR SYSTOLIC PRESSURE. LEFT ATRIAL ENLARGEMENT. NORMAL LEFT VENTRICULAR SIZE AND FUNCTION. NO WALL MOTION ABNORMALITY. NO EFFUSION. Conclusions/Impression: A JUAN M likely due to hypovolemia and chronic NSAIDs. Hyponatremia. Hypokalemia. Acidosis. Hyperglycemia suspicious for DM. Diastolic CHF, chronic. Alcoholic liver cirrhosis with ascites. Reduced but continuous alcohol intake. Iron deficiency anemia. Colon cancer. P/ Continue current POC and Medications. Continue gently IVF. Replete lytes as ordered. Will give bicarb as needed. Consider IV iron replacement. Consider a paracentesis. Consider a MVI. No NSAIDs. AM labs. Daily weight. Plan to transfer to a higher level of care for colon cancer treatment.
--- NOTE | 2018-03-18 22:43 | PN ---
Date of Progress Note: 03/18/2018 Diagnosis: Right colon mass with obstruction. History Of Present Illness: This is a case of a 67-year-old patient, well known for several months t o have colon cancer on the right side of the colon with liver metastasis. He came to us with medical problems and also distended abdomen with clinical suggestion of bowel obstruction versus an ileus. The patient is stable today. No nausea. No vomiting. No melena. Review of Systems: Ten points otherwise unremarkable. Physical Examination: General: The patient is awake, alert. No distress. HEENT: Pupils anicteric. Abdomen: Distended. Bowel sounds still positive. No peritonitis. Extremities: Good capillary refill. Laboratory Data: Blood work shows, WBC count of 8.9, with hemoglobin 9.1. INR is 1.23. Assessment: This is a 67-year-old patient with colon cancer and colonic obstruction. The patient wa s discussed with the colorectal surgeon for a transfer and evaluation, since he may require surgical intervention, that is not provided in this institution. The patient and family fully explained again . MALIA/SINCERE Voice ID: [id number] Report ID: [id number]
[2018-03-19] MEDS: NA CHLORIDE 0.9% 1,000 ML IV SCH ×2 (05:15→17:33)
[2018-03-19] MEDS: MORPHINE 2 MG/ML SYR IV PRN ×3 (05:43→19:20)
[2018-03-19] MEDS: ONDANSETRON 4 MG/2 ML VIAL IV PRN (05:44)
[2018-03-19 05:52] LABS: Absolute Lymphocytes (CBC) 0.8 K/uL (0.7-4.9); Absolute Monocytes 0.8 K/uL (0.1-1.3); Absolute Neutrophil 6.2 K/uL (1.8-8.0); Basophils % 0.3 % (0-1.3); Eosinophils % 0.9 % (0-4.4); Hematocrit 29.2 % (39.6-49.0); Lymphocytes % 10.6 % (15.3-44.8); MPV 6.9 fL (7.6-11.3); Monocytes % 10.2 % (3.3-12.3); RBC Red Blood Cell Count 4.25 M/uL (4.33-5.43)
[2018-03-19 05:54] LABS: Albumin 2.9 g/dL (3.4-5.0); Bilirubin Total 0.6 mg/dL (0.2-1.0); Magnesium 1.9 mg/dL (1.8-2.4); Potassium 4.2 mmol/L (3.5-5.1); Protein, Total 7.1 g/dL (6.4-8.2)
[2018-03-19 06:45] LABS: Anisocytosis 2+; Blood Morphology Comment NOTED (NOT SEEN); Hypochromasia 1+; Platelet Estimate ADEQ; Urine White Blood Cell Casts OK
[2018-03-19] MEDS: LACTULOSE 20 GM/30 ML UCUP PO SCH ×2 (08:37→20:29)
[2018-03-19] MEDS: ENOXAPARIN 30 MG/0.3 ML SQ SCH (08:39)
[2018-03-19] MEDS ORDERED: CYANOCOBALAMIN 1000MCG/ML INJ IM SCH (11:15)
[2018-03-19] MEDS ORDERED: SOD FERRIC GLUC COMPLX/SUCROSE 250 MG in NA CHLORIDE 0.9% 250 ML IV SCH (12:00)
--- NOTE | 2018-03-19 13:04 | RAD REPORT ---
EXAM DESCRIPTION: RAD - Abdomen 1 View (KUB) - 03/19/2018 12:53 pm CLINICAL HISTORY: Abdomen pain. FINDINGS: Air is present throughout moderately dilated small bowel. The right colon is dilated. The right colon measures approximately 12 -13 centimeters. This may all represent an adynamic ileus. A co lonic obstruction can also have this appearance. Follow-up abdominal plain film series recommended d
[2018-03-19 17:27] LABS: UR MICROALBUMIN 0.6 mg/dL (< 1.9)
[2018-03-19 21:53] VITALS: BP 104/63; TEMP 98.4
[2018-03-19 22:00] VITALS: O2SAT 92
--- NOTE | 2018-03-19 22:03 | P.PN ---
Date of Service: 03/19/18 Vital Signs Temp Pulse Resp BP Pulse Ox 98.4 F 117 H 20 104/63 91 03/19/18 20:00 03/19/18 20:00 03/19/18 20:00 03/19/18 20:00 03/19/18 20:00 Medications Hydrocodone Bitart/Acetaminophen ([place] 7.5/325 Mg) 1 tab PO Q6H PRN PRN Reason: Pain scale 8-10 (Severe) Stop: 04/16/18 15:54 Last Admin: 03/19/18 08:37 Dose: 1 tab Cyanocobalamin (B12 Injection) 1,000 mcg IM Q7D@0900 [facility] Stop: 04/18/18 11:16 Last Admin: 03/19/18 13:03 Dose: 1,000 mcg Enoxaparin Sodium (Lovenox 30 Mg Inj) 30 mg SQ DAILY [facility] Stop: 04/16/18 09:01 Last Admin: 03/19/18 08:39 Dose: Not Given Ferric Sodium Gluconate Complex 250 mg/ Sodium Chloride 270 mls @ 135 mls/hr IV Q24H [facility] Stop: 03/22/18 13:59 Last Admin: 03/19/18 13:03 Dose: 270 mls Sodium Chloride (Ns 1000 Ml Ivbag) 1,000 mls @ 50 mls/hr IV .Q20H [facility] Stop: 04/18/18 23:01 Lactulose (Cephulac) 10 gm PO BID [facility] Stop: 04/16/18 21:01 Last Admin: 03/19/18 20:29 Dose: Not Given Melatonin (Melatonin) 5 mg PO BEDTIME PRN PRN PRN Reason: INSOMNIA Stop: 04/14/18 20:14 Last Admin: 03/17/18 21:56 Dose: 5 mg Morphine Sulfate (Morphine Sulfate) 2 mg IV Q6H PRN PRN Reason: Pain scale 5-7 (Moderate) Stop: 04/16/18 16:22 Last Admin: 03/19/18 19:20 Dose: 2 mg Ondansetron HCl (Zofran) 4 mg IV Q4H PRN PRN Reason: NAUSEA / VOMITING Stop: 04/15/18 17:11 Last Admin: 03/19/18 05:44 Dose: 4 mg Sodium Chloride (Normal Saline Flush) 10 ml IV BID [facility] Stop: 04/14/18 21:01 Last Admin: 03/19/18 20:29 Dose: Not Given Tramadol HCl (Ultram) 50 mg PO TID PRN PRN Reason: Pain scale 5-7 (Moderate) Stop: 04/16/18 15:54 Last Admin: 03/18/18 18:32 Dose: 50 mg Microbiology Results 03/15/18 23:31 Blood - Blood Aerobic Blood Culture - Preliminary No growth in 24 hours. 03/15/18 23:31 Blood - Blood Anaerobic Blood Culture - Preliminary No growth in 24 hours. Assessment/ Plan: Nephrology Feeling better. CPS stable without CP or SOB. +RAUSCH No acute events overnight. Vitals, medications, blood work and imaging reviewed in the chart. General: In no apparent distress, Cooperative HEENT: Atraumatic Neck: Supple Respiratory: Clear to auscultation bilaterally, Diminished Cardiovascular: No edema, Regular rate/rhythm, No rubs Gastrointestinal: Rigidity, Distended, Tenderness Musculoskeletal: No clubbing, No contractures, No warmth Integumentary: No rashes, No cyanosis Neurological: Normal speech Blood work reviewed in the chart. Cr 2.36; Na 133 Imagings Data: EXAM DESCRIPTION: US - Abdomen Exam Complete - 03/16/2018 8:51 pm CLINICAL HISTORY: Abdominal pain. History of cirrhosis, with abdominal distention COMPARISON: Abdomen Exam Complete dated 02/27/2018; Abdomen Exam Complete dated 08/28/2017; Abdomen Pelvis W Contrast dated 08/26/2017 FINDINGS: Diffusely heterogenous and nodular contour of the liver compatible with cirrhosis is seen. Vague hypoechoic rounded lesion is seen in the right lobe measuring 2.2 x 2.1 cm The gallbladder demonstrates no gallstones, pericholecystic fluid or gallbladder wall thickening. Common bile duct is normal in caliber measuring 4 mm. Both kidneys are normal in size, shape and echotexture. No hydronephrosis. Small bilateral renal cysts are present. The spleen is moderately enlarged measuring 15 cm. The pancreas and aorta are obscured by bowel gas. The visualized aspects of the IVC are grossly normal. Mild ascites. IMPRESSION: Liver cirrhosis is seen with vague 2.2 x 2.1 cm lesion in the right lobe of the liver seen. This lesion was seen previously on the 02/27/2018 study and may represent a mass or an area of fatty sparing. Followup MR liver protocol with contrast would be helpful. Mild ascites. Moderate splenomegaly. EXAM DESCRIPTION: RAD - Chest Single View - 03/16/2018 2:10 pm CLINICAL HISTORY: Evaluate pneumonia Chest pain. COMPARISON: Chest Single View dated 03/15/2018; Chest Pa And Lat (2 Views) dated 02/26/2018; Chest Single View dated 08/26/2017; Chest Single View dated 07/28/2015 FINDINGS: Portable technique limits examination quality. Linear atelectasis is present in both lung bases, slightly greater on the right. The lungs are underinflated. The heart is normal in size. No displaced fractures. IMPRESSION: Underinflated lungs with atelectasis in both lung bases, greater on the right. Echocardiogram [id number]: MILD TRICUSPID REGURGITATION. NORMAL RIGHT VENTRICULAR SYSTOLIC PRESSURE. LEFT ATRIAL ENLARGEMENT. NORMAL LEFT VENTRICULAR SIZE AND FUNCTION. NO WALL MOTION ABNORMALITY. NO EFFUSION. Conclusions/Impression: A JUAN M likely due to hypovolemia and chronic NSAIDs. Hyponatremia. Hypokalemia. Acidosis. Hyperglycemia suspicious for DM. Diastolic CHF, chronic. Alcoholic liver cirrhosis with ascites. Reduced but continuous alcohol intake. Iron deficiency anemia. Colon cancer. P/ Continue current POC and Medications. Continue gentle IVF. Replete lytes as ordered. Will give bicarb as needed. Agree with IV iron. No NSAIDs. AM labs. Daily weight. Plan to transfer to a higher level of care for colon cancer treatment. Case discussed with Dr. Montes.
[2018-03-19] MEDS ORDERED: NA CHLORIDE 0.9% 1,000 ML IV SCH (23:00)
== END 2018-03-19 23:00 | disposition short-term general hospital (02) | DRG 682 ==
LOC: ER 13:37 → ERHOLD 17:16 → 2ND 20:11 → OBSVTOIN 03-16 16:18
PROVIDERS: ADMIT Family Medicine; ATTEND Family Medicine
DX: N17.9 Acute kidney failure, unspecified (principal); E43 Unspecified severe protein-calorie malnutrition; K56.0 Paralytic ileus; C18.8 Malignant neoplasm of overlapping sites of colon; C78.7 Secondary malignant neoplasm of liver and intrahepatic bile duct; E87.0 Hyperosmolality and hypernatremia; E87.1 Hypo-osmolality and hyponatremia; E87.2 Acidosis; I50.32 Chronic diastolic (congestive) heart failure; T39.395A Adverse effect of other nonsteroidal anti-inflammatory drugs [NSAID], initial encounter; Y92.019 Unspecified place in single-family (private) house as the place of occurrence of the external cause; E86.1 Hypovolemia; K70.31 Alcoholic cirrhosis of liver with ascites; F10.10 Alcohol abuse, uncomplicated; D63.0 Anemia in neoplastic disease; E61.1 Iron deficiency; G89.29 Other chronic pain; M48.02 Spinal stenosis, cervical region; M19.90 Unspecified osteoarthritis, unspecified site; M50.322 Other cervical disc degeneration at C5-C6 level; I10 Essential (primary) hypertension; I95.9 Hypotension, unspecified; E66.9 Obesity, unspecified; Z68.31 Body mass index [BMI] 31.0-31.9, adult; Z91.81 History of falling; S00.03XA Contusion of scalp, initial encounter; S70.11XA Contusion of right thigh, initial encounter; W01.0XXA Fall on same level from slipping, tripping and stumbling without subsequent striking against object, initial encounter; Y93.01 Activity, walking, marching and hiking; Y92.012 Bathroom of single-family (private) house as the place of occurrence of the external cause; E87.6 Hypokalemia; R73.9 Hyperglycemia, unspecified
CPT/HCPCS: 36415; 70450; 71045; 72125; 72170; 74018; 74022; 76700; 80048; 80053; 80076; 81001; 81015; 82043; 82140; 82570; 82607; 82728; 83036; 83540; 83605; 83735; 83880; 84100; 84132; 84300; 84466; 84484; 84550; 85025; 85610; 86850; 86900; 86901; 87040; 93005; 93306; 94760; 96361; 96374; 99285; G0378; J1650; J2270; J2405; J2916; J3420; J7030